=== PATIENT | female | born 1970 | race Caucasian/White ===

== ENCOUNTER 2018-06-22 12:45 | Observation (INO) | payer OTHER ==
--- NOTE | 2018-10-23 12:23 | PCM.PREANE ---
Preanesthetic Assessment - Anesthesia/Transfusion/Family Hx Anesthesia History: Prior Anesthesia Reaction Type of Anesthesia Reaction: Excessive Nausea/Vomiting Family History of Anesthesia Reaction: No Transfusion History: No Prior Transfusion(s) Intubation History: Unknown - Review of Systems General: No Symptoms Pulmonary: No Symptoms (History of albuterol: last used inhaler-does not own one.) Cardiovascular: No Symptoms Gastrointestinal: No Symptoms (GERD-pepcid OTC taken) Neurological: No Symptoms Other: Reports: Diabetes (AM blood [id number]=602 @0620), Sinus Problem (Seasonal allergies) - Physical Assessment NPO Status Date: 10/25/18 NPO Status Time: 19:00 Height: 1.65 m Weight: 99 kg ASA Class: 2 Mental Status: Alert & Oriented x3 Airway Class: Mallampati = 2 Dentition: Reports: Normal Dentition, [place](s), [place] Thyro-Mental Finger Breadths: 3 Mouth Opening Finger Breadths: 3 ROM/Head Extension: Full Lungs: Clear to Auscultation, Normal Respiratory Effort Cardiovascular: Regular Rate, Regular Rhythm, No Murmurs - Lab Values: Laboratory Last Values MRSA (PCR) Negative 10/20/18 09:49 All lab values reviewed and noted and within acceptable ranges to proceed with scheduled procedure. - Imaging/EKG Impressions: EKG: Sinus rhythm rate= 79 CXR: negative - Allergies Allergies/Adverse Reactions: Allergies Allergy/AdvReac Type Severity Reaction Status Date / Time banana Allergy Airway Verified 10/26/18 06:36 Tightness fish derived Allergy Airway Verified 10/26/18 06:36 Tightness rosuvastatin [From Crestor] Allergy Muscle Verified 10/26/18 06:36 Aches tree nut Allergy Airway Verified 10/26/18 06:36 Tightness - Anesthesia Plan Pre-Op Medication Ordered: Other (Pre-op meds: lyrica, tylenol, oxycodone given in preop at: 0635) - Acknowledgements Anesthesia Type Planned: Spinal (Left adductor canal block under US guidance for post operative pain control requested by Dr. 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 (See Below) Other OB/BYN History: x2 Musculoskeletal History: Reports: Osteoarthritis Neurological History: Reports: None Psychiatric History: Reports: None Endocrine/Metabolic History: Reports: Diabetes, Type II Hematologic History: Reports: None Immunologic History: Reports: None Oncologic (Cancer) History: Reports: None Dermatologic History: Reports: None - Past Surgical History Head Surgeries/Procedures: Reports: None HEENT Surgical History: Reports: None Cardiovascular Surgical History: Reports: None Respiratory Surgical History: Reports: None GI Surgical History: Reports: None Female Surgical History: Reports: None Male Surgical History: Reports: None Endocrine Surgical History: Reports: None Neurological Surgical History: Reports: None Musculoskeletal Surgical History: Reports: Other (See Below) Other Musculoskeletal Surgeries/Procedures:: bilateral foot/tendon surgeries Oncologic Surgical History: Reports: None Dermatological Surgical History: Reports: None - SUBSTANCE USE Smoking Status *Q: Never Smoker Second Hand Smoke Exposure: No Recreational Drug Use History: No - HOME MEDS Home Medications: Home Meds Aspirin [Ecotrin EC] 81 mg PO DAILY 10/22/18 [History] Cholecalciferol (Vitamin D3) [Vitamin D3] 5,000 unit PO DAILY 10/22/18 [History] Dulaglutide [Trulicity] 0.5 ml SQ MO 10/22/18 [History] Ezetimibe 10 mg PO DAILY 10/22/18 [History] Fexofenadine HCl [Corina Allergy] 60 mg PO DAILY 10/22/18 [History] Multivitamin [Daily Yris] 1 tab PO DAILY 10/22/18 [History] metFORMIN HCl [Metformin HCl] 1,000 mg PO DAILY 10/22/18 [History] - CURRENT (IN HOUSE) MEDS Current Meds: Current Medications Acetaminophen (Tylenol) 975 mg PO ONETIME JERICHO Stop: 10/26/18 16:00 Lactated Ringer's (Ringers, Lactated) 1,000 mls @ 125 mls/hr IV ASDIRECTED JERICHO Lidocaine/Sodium Bicarbonate (Buffered Lidocaine 1% In Ns 8.4%) 0.25 ml IDERM ONETIME PRN PRN Reason: Prior to IV Start Oxycodone HCl (Oxycontin) 10 mg PO ASDIRECTED JERICHO Stop: 10/26/18 16:00 Pregabalin (Lyrica) 50 mg PO ONETIME JERICHO Stop: 10/26/18 16:00 Scopolamine (Transderm-Scop) 1.5 mg TRDERM ONETIME ONE Stop: 10/26/18 00:02 Sodium Chloride (Saline Flush) 10 ml FLUSH ASDIRECTED PRN PRN Reason: Keep Vein Open
[2018-10-26] MEDS ORDERED: Scopolamine 1.5 MG Transdermal Patch TRDERM ONE ×2 (00:01→06:45)
[2018-10-26] MEDS ORDERED: oxyCODONE ER 10 MG TAB.ER PO SCH (06:00)
[2018-10-26] MEDS ORDERED: Pregabalin 25 MG Cap PO SCH (06:00)
[2018-10-26] MEDS ORDERED: Acetaminophen 325 MG Tab PO SCH (06:00)
[2018-10-26] MEDS ORDERED: Ropivacaine 0.5% 5 MG/ML 30 ML SDV ONE (06:07)
[2018-10-26] MEDS ORDERED: Sodium Chloride 0.9% 10 ML Syringe FLUSH PRN (06:23)
[2018-10-26] MEDS ORDERED: Lidocaine 1%/Sod Bicarbonate in NS 8.4% 1 ML Syringe IDERM PRN (06:23)
[2018-10-26] MEDS ORDERED: ceFAZolin 1 GM Vial ONE ×2 (06:23→06:38)
[2018-10-26] MEDS ORDERED: Propofol 200 MG/20 ML SDV ONE (06:23)
[2018-10-26] MEDS ORDERED: Lactated Ringers 1,000 ML IV SCH (06:23)
[2018-10-26] MEDS ORDERED: Lactated Ringers 1,000 ML ONE (06:23)
[2018-10-26] MEDS ORDERED: Ketorolac 30 MG/ML SDV ONE (06:23)
[2018-10-26] MEDS ORDERED: Ondansetron 4 MG/2 ML SDV ONE (06:23)
[2018-10-26] MEDS ORDERED: fentaNYL 100 MCG/2 ML SDV ONE (06:24)
[2018-10-26] MEDS ORDERED: Ketamine 500 mg/10 ML MDV ONE (06:24)
[2018-10-26] MEDS ORDERED: Midazolam 1 MG/ML 2 ML SDV ONE (06:24)
[2018-10-26] MEDS ORDERED: Iodine/Sodium Iodide 2% Tincture 30 ML Bottle ONE (06:38)
[2018-10-26] MEDS ORDERED: Magnesium Hydroxide 400 MG/5 ML Susp 30 ML Cup PO PRN (06:45)
[2018-10-26] MEDS ORDERED: Morphine 2 MG/ML Syringe IVPUSH PRN (06:45)
[2018-10-26] MEDS ORDERED: Ondansetron 4 MG/2 ML SDV IVPUSH PRN ×2 (06:45→07:31)
[2018-10-26] MEDS ORDERED: Ketorolac 15 MG/ML SDV IVPUSH PRN (06:45)
[2018-10-26] MEDS ORDERED: Sennosides 8.6 MG Tab PO PRN (06:45)
[2018-10-26] MEDS ORDERED: Cyclobenzaprine 10 MG Tab PO PRN (06:45)
[2018-10-26] MEDS ORDERED: Bisacodyl 5 MG Tab PO PRN (06:45)
[2018-10-26] MEDS ORDERED: Naloxone 0.4 MG/ML SDV IVPUSH PRN (06:45)
[2018-10-26] MEDS ORDERED: Bupivacaine 0.25% 10 ML SDV ONE (07:03)
[2018-10-26] MEDS ORDERED: diphenhydrAMINE 50 MG/ML SDV ONE (07:21)
[2018-10-26] MEDS ORDERED: ePHEDrine 50 MG/ML SDV IVPUSH PRN (07:31)
[2018-10-26] MEDS ORDERED: HYDROmorphone 0.5 MG/0.5 ML Syringe IVPUSH PRN (07:31)
[2018-10-26] MEDS ORDERED: fentaNYL 100 MCG/2 ML SDV IVPUSH PRN (07:31)
[2018-10-26] MEDS ORDERED: diphenhydrAMINE 50 MG/ML SDV IVPUSH PRN (07:31)
[2018-10-26] MEDS ORDERED: EPINEPHrine 1 MG/1 ML Amp ONE (07:41)
[2018-10-26] MEDS ORDERED: Phenylephrine 1 MG in Sodium Chloride 0.9% 10 ML IV SCH (07:45)
[2018-10-26] MEDS ORDERED: Albuterol 0.083% 2.5 MG/3 ML Neb Soln NEB ONE (07:45)
--- NOTE | 2018-10-26 07:53 | PCM.CONS ---
H&P History of Present Illness - General Date of Service: 10/26/18 Admit Problem/Dx: Admission Diagnosis/Problem Admission Diagnosis/Problem Osteoarthritis of knee Source of Information: Patient, Old Records, Provider, RN, RN Notes Reviewed History Limitations: Reports: No Limitations - History of Present Illness Initial Comments - Free Text/Narative: Thais Flaherty is a 48 yo female patient of Dr. Hall who is post-operative day 0 of left TKA with right knee cortisone injection. Hospital medicine was consulted for post-operative medical care of the following listed medical conditions. At this time she is resting comfortably in bed. Pain is controlled. She denies any chest pain, shortness of breath, palpitations, nausea, or vomiting. She carries a history of: Type II DM, HLD, OA, GERD, Asthma. She was never a smoker. She is a full code. Her primary care provider is Milena Blevins NP. - Related Data Allergies/Adverse Reactions: Allergies Allergy/AdvReac Type Severity Reaction Status Date / Time banana Allergy Airway Verified 10/26/18 06:36 Tightness fish derived Allergy Airway Verified 10/26/18 06:36 Tightness tree nut Allergy Airway Verified 10/26/18 06:36 Tightness rosuvastatin [From Crestor] AdvReac Muscle Verified 10/26/18 07:06 Aches Home Medications: Home Meds Aspirin [Ecotrin EC] 81 mg PO DAILY 10/22/18 [History] Cholecalciferol (Vitamin D3) [Vitamin D3] 5,000 unit PO DAILY 10/22/18 [History] Dulaglutide [Trulicity] 0.5 ml SQ MO 10/22/18 [History] Ezetimibe 10 mg PO DAILY 10/22/18 [History] Fexofenadine HCl [Corina Allergy] 60 mg PO DAILY 10/22/18 [History] Multivitamin [Daily Yris] 1 tab PO DAILY 10/22/18 [History] metFORMIN HCl [Metformin HCl] 1,000 mg PO DAILY 10/22/18 [History] Past Medical History HEENT History: Reports: None Cardiovascular History: Reports: High Cholesterol Respiratory History: Reports: Asthma Gastrointestinal History: Reports: None Genitourinary History: Reports: None 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: , Other (See Below) Other OB/BYN History: x2 Musculoskeletal History: Reports: Osteoarthritis Neurological History: Reports: None Psychiatric History: Reports: None Endocrine/Metabolic History: Reports: Diabetes, Type II Hematologic History: Reports: None Immunologic History: Reports: None Oncologic (Cancer) History: Reports: None Dermatologic History: Reports: None - Past Surgical History Head Surgeries/Procedures: Reports: None HEENT Surgical History: Reports: None Cardiovascular Surgical History: Reports: None Respiratory Surgical History: Reports: None GI Surgical History: Reports: None Female Surgical History: Reports: None Male Surgical History: Reports: None Endocrine Surgical History: Reports: None Neurological Surgical History: Reports: None Musculoskeletal Surgical History: Reports: Other (See Below) Other Musculoskeletal Surgeries/Procedures:: bilateral foot/tendon surgeries Oncologic Surgical History: Reports: None Dermatological Surgical History: Reports: None Social & Family History - Tobacco Use Smoking Status *Q: Never Smoker Second Hand Smoke Exposure: No - Caffeine Use Caffeine Use: Reports: Tea - Recreational Drug Use Recreational Drug Use: No H&P Review of Systems - Review of Systems: Review Of Systems: See Below General: Reports: No Symptoms. Denies: Fever, Chills HEENT: Reports: No Symptoms. Denies: Headaches, Sore Throat Pulmonary: Reports: No Symptoms. Denies: Shortness of Breath, Wheezing, Pleuritic Chest Pain, Cough, Sputum Cardiovascular: Reports: No Symptoms. Denies: Chest Pain, Palpitations Gastrointestinal: Reports: No Symptoms. Denies: Abdominal Pain, Constipation, Diarrhea, Nausea, Vomiting Genitourinary: Reports: No Symptoms. Denies: Pain Musculoskeletal: Reports: Leg Pain Skin: Reports: No Symptoms. Denies: Cyanosis Psychiatric: Reports: No Symptoms. Denies: Confusion Neurological: Reports: No Symptoms Hematologic/Lymphatic: Reports: No Symptoms Immunologic: Reports: No Symptoms Exam - Exam Exam: See Below - Vital Signs Vital Signs: Last Vital Signs Temp 98.5 F 10/26/18 06:10 Pulse 76 10/26/18 06:10 Resp 16 10/26/18 06:10 BP 140/83 10/26/18 06:10 Pulse Ox 97 10/26/18 06:10 Weight: 218 lb 4.122 oz - Exam Quality Assessment: DVT Prophylaxis General: Alert, Oriented, Cooperative. No: Mild Distress HEENT: Conjunctiva Clear, EACs Clear, EOMI, Hearing Intact, Mucosa Moist & Cataract , Nares Patent, Posterior Pharynx Clear, PERRLA Neck: Supple, Trachea Midline Lungs: Clear to Auscultation, Normal Respiratory Effort Cardiovascular: Regular Rate, Regular Rhythm GI/Abdominal Exam: Normal Bowel Sounds, Soft, Non-Tender, No Organomegaly, No Distention (Female) Exam: Deferred Rectal (Female) Exam: Deferred Back Exam: Normal Inspection, Full Range of Motion Extremities: No Pedal Edema, Normal Capillary Refill, Leg Pain, Limited Range of Motion, Other (Bandage in place on left leg. Bandage is dry and intact. Cooling pack in place. ) Peripheral Pulses: 2+: Radial (L), Radial (R), Dorsalis Pedis (L), Dorsalis Pedis (R) Skin: Warm, Dry, Intact Neurological: Cranial Nerves Intact (Grossly ) Neuro Extensive - Mental Status: Alert, Oriented x3, Normal Mood/Affect - Patient Data Lab Results Last 24 hrs: Laboratory Results - last 24 hr 10/26/ Range/Units 06:27 POC Glucose 114 H (70-105) mg/dL Consult PN Assessment/Plan POD#: 0 (1) S/P total knee arthroplasty SNOMED Code(s): 5303427884414, 609019562, 2825089756170 Code(s): Z96.659 - PRESENCE OF UNSPECIFIED ARTIFICIAL KNEE JOINT Priority: High Current Visit: Yes Qualifiers: Laterality: left Qualified Code(s): Z96.652 - Presence of left artificial knee joint (2) Osteoarthritis SNOMED Code(s): 839479557 Code(s): M19.90 - UNSPECIFIED OSTEOARTHRITIS, UNSPECIFIED SITE Priority: High Current Visit: Yes Qualifiers: Osteoarthritis location: knee Osteoarthritis type: primary Laterality: bilateral Qualified Code(s): M17.0 - Bilateral primary osteoarthritis of knee (3) Type II diabetes mellitus SNOMED Code(s): 22732894 Code(s): E11.9 - TYPE 2 DIABETES MELLITUS WITHOUT COMPLICATIONS Priority: Medium Current Visit: No Qualifiers: Diabetes mellitus detention insulin use: without joint terminal attack controller use Diabetes mellitus complication status: with other specified complication Qualified Code (s): E11.69 - Type 2 diabetes mellitus with other specified complication (4) HLD (hyperlipidemia) SNOMED Code(s): 23899376 Code(s): E78.5 - HYPERLIPIDEMIA, UNSPECIFIED Priority: Low Current Visit : No Qualifiers: Hyperlipidemia type: unspecified Qualified Code(s): E78.5 - Hyperlipidemia , unspecified (5) Asthma SNOMED Code(s): 455778867 Code(s): J45.909 - UNSPECIFIED ASTHMA, UNCOMPLICATED Priority: Medium Current Visit: No Qualifiers: Asthma severity: unspecified severity Asthma persistence: unspecified Asthma complication type: unspecified Qualified Code(s): J45.909 - Unspecified asthma, uncomplicated (6) GERD (gastroesophageal reflux disease) SNOMED Code(s): 679934575 Code(s): K21.9 - GASTRO-ESOPHAGEAL REFLUX DISEASE WITHOUT ESOPHAGITIS Priority: Low Current Visit: No Qualifiers: Esophagitis presence: esophagitis presence not specified Qualified Code(s) : K21.9 - Gastro-esophageal reflux disease without esophagitis Problem List Initiated/Reviewed/Updated: Yes Plan: I/P: Acute: S/P left total knee arthroplasty - post-operative day 0 -DVT prophylaxis and pain management per primary care team -PT/OT -IS/RT -Monitor oxygen saturation -Titrate oxygen as needed -Home medications reviewed -Vital signs stable -Monitor labs -Pre-operative Hgb was 11.5 -Pre-operative GFR was 86 -Pre-operative A1C was 6.0% Osteoarthritis of bilateral knees -Pain management per primary care team S/P right knee cortisone injection -Management per primary team History of post operative nausea and vomiting -Scopolamine patch in place -PRN Zofran -No nausea or vomiting thus far Chronic: Type II DM HLD Asthma GERD Plan: CM for discharge planning GI prophylaxis Home medications as indicated Other orders as listed above Routine AM labs She is a full code. Her PCP is Milena Blevins NP Thank you for allowing us to participate in the care of this patient!! Requesting Provider: Dr. Hall Date Consult Requested: 10/26/18 Patient History Reviewed: Yes Admission H&P Reviewed: Yes Time Spent (in minutes): 40
[2018-10-26] MEDS: Morphine 8 MG, EPINEPHrine 0.3 MG, Cefuroxime 750 MG, Ketorolac 30 MG, Sodium Chloride ... ONE ×10 (08:15→08:17)
[2018-10-26] MEDS: Vancomycin 1 GM SDV ONE ×2 (08:16→08:19)
[2018-10-26] MEDS: Bupivacaine 0.25% 10 ML SDV ONE ×2 (08:16→08:17)
[2018-10-26] MEDS: Triamcinolone Acetonide 40 MG/ML 1 ML MDV ONE ×2 (08:17→08:45)
[2018-10-26] MEDS ORDERED: Phenylephrine/Normal Saline 100 MCG/ML 10 ML Syringe ONE (08:26)
--- NOTE | 2018-10-26 09:00 | PCM.POSTAN ---
POST ANESTHESIA ASSESSMENT - MENTAL STATUS Mental Status: Alert - VITAL SIGNS Vital Signs: Last Vital Signs Temp 97.3f 10/26/18 08:51 Pulse 69 10/26/18 08:51 Resp 10 10/26/18 08:51 BP 100/62 10/26/18 08:51 Pulse Ox 92 10/26/18 08:51 - RESPIRATORY Respiratory Status: Respiratory Rate WNL, Airway Patent, O2 Saturation Stable - CARDIOVASCULAR CV Status: Pulse Rate WNL, Blood Pressure Stable - GASTROINTESTINAL GI Status: No Symptoms - POST OP HYDRATION Hydration Status: Adequate & Stable
--- NOTE | 2018-10-26 09:26 | PCM.SN ---
- Free Text/Narrative Note: Left selective femoral nerve block at the adductor canal for post-procedure pain control under US guidance requested by Dr. Hall. Time Out: 903 Start: 903 End: 911 Chart reviewed. Consent signed. Questions answered. Appropriate monitors applied. Time out performed. Left mid-shaft femur identified with ultrasound, scanning medially of femur, the femoral artery in the adductor canal visualized , and the femoral nerve located laterally to the artery. The skin was prepped lateral to the ultrasound probe with chlorahexadine times two. The 21ga 4 insulated block needle was inserted under direct ultrasound guidance into the adductor canal. 25mL of 0.5% ropivacaine with 1:200,000 epinephrine was injected circumferentially around the nerve with intermittent negative aspiration noted. Patient tolerated the procedure well. Sterile technique noted along with sterile gloves, mask, and sterile probe cover. See picture on progress note and vital signs on nurses notes. Block completed in PACU. Geetha Shrestha CRNA
--- NOTE | 2018-10-26 10:13 | CR ---
Left knee: AP and lateral views of the left knee were obtained. Comparison: No prior knee exam. Knee prosthesis is seen. Components are aligned. No fracture or other bony abnormality is seen. Soft tissue air noted from the surgical procedure. Impression: 1. Satisfactory appearance of recently placed left knee prosthesis. Diagnostic code #2
[2018-10-26] MEDS: ceFAZolin 2 GM in Premix Bag 1 BAG IV SCH ×3 (10:49→22:16)
[2018-10-26] MEDS: Famotidine 20 MG Tab PO SCH ×2 (11:48→18:48)
[2018-10-26] MEDS: Acetaminophen/oxyCODONE 325-5 MG Tab PO PRN ×2 (14:37→20:03)
[2018-10-26] MEDS: Insulin Lispro 100 Units/ML 3 ML Vial SUBCUT SCH ×2 (17:30→22:12)
[2018-10-26] MEDS ORDERED: Cholecalciferol (Vitamin D3) 5,000 UNIT Tab PO SCH (19:00)
[2018-10-26] MEDS: Docusate Sodium 100 MG Cap PO SCH (20:02)
[2018-10-27] MEDS: Acetaminophen/oxyCODONE 325-5 MG Tab PO PRN ×2 (02:42→09:33)
[2018-10-27] MEDS: Famotidine 20 MG Tab PO SCH (06:20)
--- NOTE | 2018-10-27 06:20 | PCM.CONSN ---
- General Info Date of Service: 10/27/18 Admission Dx/Problem (Free Text): Admission Diagnosis/Problem Admission Diagnosis/Problem Osteoarthritis of knee Functional Status: Reports: Pain Controlled, Tolerating Diet, Ambulating, Urinating, Incentive Spirometry. Denies: New Symptoms - Review of Systems General: Reports: No Symptoms. Denies: Fever, Chills HEENT: Reports: No Symptoms. Denies: Headaches, Sore Throat Pulmonary: Reports: No Symptoms. Denies: Shortness of Breath, Pleuritic Chest Pain, Cough, Sputum, Wheezing Cardiovascular: Reports: No Symptoms. Denies: Chest Pain, Palpitations, Dyspnea on Exertion Gastrointestinal: Reports: No Symptoms. Denies: Abdominal Pain, Constipation, Diarrhea, Nausea, Vomiting Genitourinary: Reports: No Symptoms. Denies: Pain Musculoskeletal: Reports: Leg Pain Skin: Reports: No Symptoms. Denies: Cyanosis Neurological: Reports: No Symptoms. Denies: Confusion Psychiatric: Reports: No Symptoms - Patient Data Vitals - Most Recent: Last Vital Signs Temp 98.2 F 10/27/18 03:00 Pulse 57 L 10/27/18 03:00 Resp 18 10/27/18 03:00 BP 107/65 10/27/18 03:00 Pulse Ox 93 L 10/27/18 03:00 Weight - Most Recent: 218 lb 4.122 oz I&O - Last 24 Hours: Intake & Output 10/26/18 10/26/18 10/27/18 14:59 22:59 06:59 Intake Total 300 320 Balance 300 320 Lab Results Last 24 Hours: Laboratory Results - last 24 hr 10/26/18 10/26/18 10/26/18 Range/Units 06:27 09:34 17:20 POC Glucose 114 H 128 H 152 H (70-105) mg/dL 10/26/18 Range/Units 21:55 POC Glucose 161 H (70-105) mg/dL Med Orders - Current: Current Medications Aspirin (Ecotrin) 325 mg PO BID [facility] Bisacodyl (Dulcolax) 5 mg PO DAILY PRN PRN Reason: Constipation Cholecalciferol (Vitamin D3) 5,000 unit PO DAILY@1900 [facility] Last Admin: 10/26/18 18:48 Dose: 5,000 unit Cyclobenzaprine HCl (Flexeril) 10 mg PO TID PRN PRN Reason: Spasms Last Admin: 10/26/18 20:02 Dose: 10 mg Docusate Sodium (Colace) 100 mg PO BID [facility] Last Admin: 10/26/18 20:02 Dose: 100 mg Ezetimibe (Zetia) 10 mg PO DAILY@1000 [facility] Famotidine (Pepcid) 20 mg PO Q12H [facility] Last Admin: 10/26/18 18:48 Dose: 20 mg Cefazolin Sodium/Dextrose 2 gm (/ Premix) 50 mls @ 100 mls/hr IV Q8H [facility] Stop: 10/27/18 07:14 Insulin Human Lispro (Humalog) 0 unit SUBCUT QIDACANDBED [facility]; Protocol Last Admin: 10/26/18 22:12 Dose: 1 unit Ketorolac Tromethamine (Toradol) 15 mg IVPUSH Q6H PRN PRN Reason: Pain Last Admin: 10/27/18 02:38 Dose: 15 mg Loratadine (Claritin) 10 mg PO DAILY [facility] Magnesium Hydroxide (Milk Of Magnesia) 30 ml PO BID PRN PRN Reason: Constipation Morphine Sulfate (Morphine) 2 mg IVPUSH Q2H PRN PRN Reason: Breakthrough Pain Multivitamins (Thera) 1 each PO DAILY [facility] Naloxone HCl (Narcan) 0.1 mg IVPUSH Q5M PRN PRN Reason: Oversedation Ondansetron HCl (Zofran) 4 mg IVPUSH Q6H PRN PRN Reason: Nausea/Vomiting Oxycodone/Acetaminophen (Percocet 325-5 Mg) 1 - 2 tab PO Q4H PRN PRN Reason: Pain Last Admin: 10/27/18 02:42 Dose: 2 tab Dulaglutide [ (Trulicity] 0.5 Ml) 0 each SUBCUT Mo@1300 [facility] Senna (Senna) 8.6 mg PO BID PRN PRN Reason: Constipation Sodium Chloride (Saline Flush) 10 ml FLUSH ASDIRECTED PRN PRN Reason: Keep Vein Open Discontinued Medications Acetaminophen (Tylenol) 975 mg PO ONETIME [facility] Stop: 10/26/18 16:00 Last Admin: 10/26/18 06:32 Dose: 975 mg Albuterol (Proventil Neb Soln) 2.5 mg NEB ONETIME ONE Stop: 10/26/18 07:46 Last Admin: 10/26/18 10:51 Dose: Not Given Bupivacaine HCl (Sensorcaine-Mpf 0.25%) Confirm Administered Dose 30 ml .ROUTE .STK-MED ONE Stop: 10/26/18 06:39 Last Admin: 10/26/18 08:17 Dose: 26 ml Bupivacaine HCl (Sensorcaine-Mpf 0.25%) Confirm Administered Dose 20 ml .ROUTE .STK-MED ONE Stop: 10/26/18 07:04 Cefazolin Sodium (Ancef) Confirm Administered Dose 2 gm .ROUTE .STK-MED ONE Stop: 10/26/18 06:24 Last Admin: 10/26/18 08:13 Dose: 2 gm Cefazolin Sodium (Ancef) Confirm Administered Dose 2 gm .ROUTE .STK-MED ONE Stop: 10/26/18 06:39 Morphine Sulfate 8 mg/Epinephrine HCl 0.3 mg/Cefuroxime Sodium 750 mg/Ketorolac Tromethamine 30 mg/Sodium Chloride 27.9 ml 0 mg .XX ONETIME ONE Stop: 10/26/18 06:46 Last Admin: 10/26/18 08:17 Dose: 788.3 mg Diphenhydramine HCl (Benadryl) Confirm Administered Dose 50 mg .ROUTE .STK-MED ONE Stop: 10/26/18 07:22 Diphenhydramine HCl (Benadryl) 25 mg IVPUSH Q6H PRN PRN Reason: pruritis Stop: 10/26/18 11:00 Ephedrine Sulfate (Ephedrine Sulfate) 5 mg IVPUSH ASDIRECTED PRN PRN Reason: Hypotension Stop: 10/26/18 11:00 Epinephrine HCl (Adrenalin) Confirm Administered Dose 1 mg .ROUTE .STK-MED ONE Stop: 10/26/18 07:42 Fentanyl (Sublimaze) Confirm Administered Dose 100 mcg .ROUTE .STK-MED ONE Stop: 10/26/18 06:25 Fentanyl (Sublimaze) 50 mcg IVPUSH Q5M PRN PRN Reason: Pain Stop: 10/26/18 11:00 Hydromorphone HCl (Dilaudid) 0.5 mg IVPUSH Q15M PRN PRN Reason: Pain (severe 7-10) Stop: 10/26/18 11:00 Lactated Ringer's (Ringers, Lactated) 1,000 mls @ 125 mls/hr IV ASDIRECTED [facility] Stop: 10/26/18 23:00 Last Admin: 10/26/18 06:37 Dose: 125 mls/hr Lidocaine HCl (Xylocaine-Mpf 1%) Confirm Administered Dose 10 mls @ as directed .ROUTE .STK-MED ONE Stop: 10/26/18 06:24 Lactated Ringer's (Ringers, Lactated) Confirm Administered Dose 1,000 mls @ as directed .ROUTE .STK-MED ONE Stop: 10/26/18 06:24 Cefazolin Sodium/Dextrose 2 gm (/ Premix) 50 mls @ 100 mls/hr IV Q8H [facility] Stop: 10/26/18 23:14 Last Admin: 10/26/18 22:16 Dose: 100 mls/hr Phenylephrine HCl 1 mg/ Sodium (Chloride) 10.1 mls @ 1 mls/sec IV TITRATE [facility]; Protocol Stop: 10/26/18 11:00 Iodine (Iodine 2% Mild Tincture) Confirm Administered Dose 30 ml .ROUTE .STK- MED ONE Stop: 10/26/18 06:39 Last Admin: 10/26/18 08:11 Dose: 18 ml Ketamine HCl (Ketalar) Confirm Administered Dose 500 mg .ROUTE .STK-MED ONE Stop: 10/26/18 06:25 Ketorolac Tromethamine (Toradol) Confirm Administered Dose 30 mg .ROUTE .STK- MED ONE Stop: 10/26/18 06:24 Lidocaine/Sodium Bicarbonate (Buffered Lidocaine 1% In Ns 8.4%) 0.25 ml IDERM ONETIME PRN PRN Reason: Prior to IV Start Last Admin: 10/26/18 06:37 Dose: 0.25 ml Midazolam HCl (Versed 1 Mg/Ml) Confirm Administered Dose 2 mg .ROUTE .STK-MED ONE Stop: 10/26/18 06:25 Ondansetron HCl (Zofran) Confirm Administered Dose 4 mg .ROUTE .STK-MED ONE Stop: 10/26/18 06:24 Ondansetron HCl (Zofran) 4 mg IVPUSH ONETIME PRN PRN Reason: Nausea/Vomiting Stop: 10/26/18 11:00 Oxycodone HCl (Oxycontin) 10 mg PO ASDIRECTED [facility] Stop: 10/26/18 16:00 Last Admin: 10/26/18 06:32 Dose: 10 mg Phenylephrine HCl (Phenylephrine In Ns 100 Mcg/Ml) Confirm Administered Dose 1 mg .ROUTE .STK-MED ONE Stop: 10/26/18 08:27 Pregabalin (Lyrica) 50 mg PO ONETIME [facility] Stop: 10/26/18 16:00 Last Admin: 10/26/18 06:31 Dose: 50 mg Propofol (Diprivan 20 Ml) Confirm Administered Dose 400 mg .ROUTE .STK-MED ONE Stop: 10/26/18 06:24 Ropivacaine (Naropin 0.5%) Confirm Administered Dose 30 ml .ROUTE .STK-MED ONE Stop: 10/26/18 06:08 Scopolamine (Transderm-Scop) 1.5 mg TRDERM ONETIME ONE Stop: 10/26/18 00:02 Last Admin: 10/26/18 11:49 Dose: Not Given Scopolamine (Transderm-Scop) 1.5 mg TRDERM ONETIME ONE Stop: 10/26/18 06:46 Last Admin: 10/26/18 06:35 Dose: 1.5 mg Tranexamic Acid (Cyklokapron) Confirm Administered Dose 1,000 mg .ROUTE .STK- MED ONE Stop: 10/26/18 06:39 Last Admin: 10/26/18 08:25 Dose: 1,000 mg Tranexamic Acid (Cyklokapron) Confirm Administered Dose 1,000 mg .ROUTE .STK- MED ONE Stop: 10/26/18 07:03 Triamcinolone Acetonide (Kenalog-40) Confirm Administered Dose 80 mg .ROUTE .STK -MED ONE Stop: 10/26/18 06:39 Last Admin: 10/26/18 08:45 Dose: 80 mg Vancomycin HCl (Vancomycin) Confirm Administered Dose 1 gm .ROUTE .STK-MED ONE Stop: 10/26/18 06:39 Last Admin: 10/26/18 08:19 Dose: 1 gm - Exam Quality Assessment: DVT Prophylaxis. No: Supplemental Oxygen, Urine Catheter General: Alert, Oriented, Cooperative, No Acute Distress HEENT: Pupils Equal, Pupils Reactive, EOMI, Mucous Membr. Moist/[place] Neck: Supple, Trachea Midline, No JVD Lungs: Clear to Auscultation, Normal Respiratory Effort Cardiovascular: Regular Rate, Regular Rhythm GI/Abdominal Exam: Normal Bowel Sounds, Soft, Non-Tender, No Distention, No Abnormal Bruit (Female) Exam: Deferred Back Exam: Normal Inspection, Full Range of Motion Extremities: No Pedal Edema, Normal Capillary Refill, Leg Pain, Limited Range of Motion, Other (Bandage on left leg. Cooling pack in place. ) Peripheral Pulses: 2+: Radial (L), Radial (R), Dorsalis Pedis (L), Dorsalis Pedis (R) Skin: Warm, Dry, Intact Wound/Incisions: Dressing Dry and Intact Neurological: No New Focal Deficit Psy/Mental Status: Alert, Normal Affect, Normal Mood Consult PN Assessment/Plan POD#: 1 (1) S/P total knee arthroplasty SNOMED Code(s): 2105006454250, 506684650, 2830176719653 Code(s): Z96.659 - PRESENCE OF UNSPECIFIED ARTIFICIAL KNEE JOINT Priority: High Current Visit: Yes Qualifiers: Laterality: left Qualified Code(s): Z96.652 - Presence of left artificial knee joint (2) Osteoarthritis SNOMED Code(s): 885232183 Code(s): M19.90 - UNSPECIFIED OSTEOARTHRITIS, UNSPECIFIED SITE Priority: High Current Visit: Yes Qualifiers: Osteoarthritis location: knee Osteoarthritis type: primary Laterality: bilateral Qualified Code(s): M17.0 - Bilateral primary osteoarthritis of knee (3) Type II diabetes mellitus SNOMED Code(s): 15475698 Code(s): E11.9 - TYPE 2 DIABETES MELLITUS WITHOUT COMPLICATIONS Priority: Medium Current Visit: No Qualifiers: 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: without diesel 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 use Diabetes mellitus complication status: with other specified complication Qualified Code (s): E11.69 - Type 2 diabetes mellitus with other specified complication (4) HLD (hyperlipidemia) SNOMED Code(s): 19722441 Code(s): E78.5 - HYPERLIPIDEMIA, UNSPECIFIED Priority: Low Current Visit : No Qualifiers: Hyperlipidemia type: unspecified Qualified Code(s): E78.5 - Hyperlipidemia , unspecified (5) Asthma SNOMED Code(s): 787817282 Code(s): J45.909 - UNSPECIFIED ASTHMA, UNCOMPLICATED Priority: Medium Current Visit: No Qualifiers: Asthma severity: unspecified severity Asthma persistence: unspecified Asthma complication type: unspecified Qualified Code(s): J45.909 - Unspecified asthma, uncomplicated (6) GERD (gastroesophageal reflux disease) SNOMED Code(s): 597438405 Code(s): K21.9 - GASTRO-ESOPHAGEAL REFLUX DISEASE WITHOUT ESOPHAGITIS Priority: Low Current Visit: No Qualifiers: Esophagitis presence: esophagitis presence not specified Qualified Code(s) : K21.9 - Gastro-esophageal reflux disease without esophagitis Problem List Initiated/Reviewed/Updated: Yes My Orders Last 24 Hours: My Active Orders 10/26/18 12:14 Accu Check [Blood Glucose Check, Bedside] [RC] QIDACANDBED Blood Glucose Check, Bedside [RC] QIDACANDBED 10/26/18 17:00 Insulin Lispro [HumaLOG] See Protocol SUBCUT QIDACANDBED Plan: I/P: Acute: S/P left total knee arthroplasty - post-operative day 1 -DVT prophylaxis and pain management per primary care team -PT/OT -IS/RT -Monitor oxygen saturation -Titrate oxygen as needed -Home medications reviewed -Vital signs stable -Monitor labs -Pre-operative Hgb was 11.5; Now 10.7 -Pre-operative GFR was 86; Now >60 -Pre-operative A1C was 6.0% Osteoarthritis of bilateral knees -Pain management per primary care team S/P right knee cortisone injection -Management per primary team History of post operative nausea and vomiting -Scopolamine patch in place -PRN Zofran -No nausea or vomiting during stay Chronic: Type II DM HLD Asthma GERD Plan: CM for discharge planning GI prophylaxis Home medications as indicated Other orders as listed above Routine AM labs She is a full code. Her PCP is Milena Blevins NP From a hospitalist standpoint Thais is doing well. She has been up ambulating and working with therapies. She has urinated and is not on oxygen. There are no nursing or patient concerns. Her labs and vital signs remain stable. She is cleared for discharge pending PT/OT and primary team agreement. Thank you for allowing us to participate in the care of this patient!!
[2018-10-27] MEDS: Insulin Lispro 100 Units/ML 3 ML Vial SUBCUT SCH (06:30)
[2018-10-27] MEDS ORDERED: ceFAZolin 2 GM in Premix Bag 1 BAG IV SCH (06:45)
--- NOTE | 2018-10-27 07:41 | PCM.SURGPN ---
- General Info Date of Service: 10/27/18 POD#: 1 Functional Status: Reports: Pain Controlled, Tolerating Diet, Ambulating, Urinating, Incentive Spirometry, Other (The pt reports quad soreness.) - Patient Data Vitals - Most Recent: Last Vital Signs Temp 98.2 F 10/27/18 03:00 Pulse 57 L 10/27/18 03:00 Resp 18 10/27/18 03:00 BP 107/65 10/27/18 03:00 Pulse Ox 93 L 10/27/18 03:00 Weight - Most Recent: 218 lb 4.122 oz I&O - Last 24 Hours: Intake & Output 10/26/18 10/27/18 10/27/18 22:59 06:59 14:59 Intake Total 320 Balance 320 Lab Results Last 24 Hrs: Laboratory Results - last 24 hr 10/26/18 10/26/18 10/26/18 Range/Units 09:34 17:20 21:55 WBC (3.98-10.04) K/mm3 RBC (3.98-5.22) M/mm3 Hgb (11.2-15.7) gm/L Hct (34.1-44.9) % MCV (79.4-94.8) fl MCH (25.6-32.2) pg MCHC (32.2-35.5) g/dl RDW Std Deviation (36.4-46.3) fL Plt Count (182-369) K/mm3 MPV (9.4-12.3) fl Sodium (136-145) mEq/L Potassium (3.5-5.1) mEq/L Chloride (98-107) mEq/L Carbon Dioxide (21-32) mEq/L Anion Gap (5-15) BUN (7-18) mg/dL Creatinine (0.55-1.02) mg/dL Est Cr Clr Drug Dosing mL/min Estimated GFR (MDRD) (>60) mL/min BUN/Creatinine Ratio (14-18) Glucose (74-106) mg/dL POC Glucose 128 H 152 H 161 H (70-105) mg/dL Calcium (8.5-10.1) mg/dL Total Bilirubin (0.2-1.0) mg/dL AST (15-37) U/L ALT (14-59) U/L Alkaline Phosphatase (46-116) U/L Total Protein (6.4-8.2) g/dl Albumin (3.4-5.0) g/dl Globulin gm/dL Albumin/Globulin Ratio (1-2) 10/27/18 10/27/18 10/27/18 Range/Units 06:19 06:20 06:20 WBC 8.61 (3.98-10.04) K/mm3 RBC 3.44 L (3.98-5.22) M/mm3 Hgb 10.7 L (11.2-15.7) gm/L Hct 33.0 L (34.1-44.9) % MCV 95.9 H (79.4-94.8) fl MCH 31.1 (25.6-32.2) pg MCHC 32.4 (32.2-35.5) g/dl RDW Std Deviation 42.7 (36.4-46.3) fL Plt Count 201 (182-369) K/mm3 MPV 11.3 (9.4-12.3) fl Sodium 139 (136-145) mEq/L Potassium 4.5 (3.5-5.1) mEq/L Chloride 104 (98-107) mEq/L Carbon Dioxide 28 (21-32) mEq/L Anion Gap 11.5 (5-15) BUN 12 (7-18) mg/dL Creatinine 0.8 (0.55-1.02) mg/dL Est Cr Clr Drug Dosing 77.38 mL/min Estimated GFR (MDRD) > 60 (>60) mL/min BUN/Creatinine Ratio 15.0 (14-18) Glucose 152 H (74-106) mg/dL POC Glucose 161 H (70-105) mg/dL Calcium 8.7 (8.5-10.1) mg/dL Total Bilirubin 0.5 (0.2-1.0) mg/dL AST 17 (15-37) U/L ALT 30 (14-59) U/L Alkaline Phosphatase 52 (46-116) U/L Total Protein 6.3 L (6.4-8.2) g/dl Albumin 2.8 L (3.4-5.0) g/dl Globulin 3.5 gm/dL Albumin/Globulin Ratio 0.8 L (1-2) Med Orders - Current: Current Medications Aspirin (Ecotrin) 325 mg PO BID [facility] Bisacodyl (Dulcolax) 5 mg PO DAILY PRN PRN Reason: Constipation Cholecalciferol (Vitamin D3) 5,000 unit PO DAILY@1900 [facility] Last Admin: 10/26/18 18:48 Dose: 5,000 unit Cyclobenzaprine HCl (Flexeril) 10 mg PO TID PRN PRN Reason: Spasms Last Admin: 10/26/18 20:02 Dose: 10 mg Docusate Sodium (Colace) 100 mg PO BID [facility] Last Admin: 10/26/18 20:02 Dose: 100 mg Ezetimibe (Zetia) 10 mg PO DAILY@1000 [facility] Famotidine (Pepcid) 20 mg PO Q12H [facility] Last Admin: 10/27/18 06:20 Dose: 20 mg Insulin Human Lispro (Humalog) 0 unit SUBCUT QIDACANDBED [facility]; Protocol Last Admin: 10/27/18 06:30 Dose: 1 unit Ketorolac Tromethamine (Toradol) 15 mg IVPUSH Q6H PRN PRN Reason: Pain Last Admin: 10/27/18 02:38 Dose: 15 mg Loratadine (Claritin) 10 mg PO DAILY [facility] Magnesium Hydroxide (Milk Of Magnesia) 30 ml PO BID PRN PRN Reason: Constipation Miscellaneous Information (Remove Patch) 1 ea TRDERM ONETIME ONE Stop: 10/29/18 06:36 Morphine Sulfate (Morphine) 2 mg IVPUSH Q2H PRN PRN Reason: Breakthrough Pain Multivitamins (Thera) 1 each PO DAILY [facility] Naloxone HCl (Narcan) 0.1 mg IVPUSH Q5M PRN PRN Reason: Oversedation Ondansetron HCl (Zofran) 4 mg IVPUSH Q6H PRN PRN Reason: Nausea/Vomiting Oxycodone/Acetaminophen (Percocet 325-5 Mg) 1 - 2 tab PO Q4H PRN PRN Reason: Pain Last Admin: 10/27/18 02:42 Dose: 2 tab Dulaglutide [ (Trulicity] 0.5 Ml) 0 each SUBCUT Mo@1300 [facility] Senna (Senna) 8.6 mg PO BID PRN PRN Reason: Constipation Sodium Chloride (Saline Flush) 10 ml FLUSH ASDIRECTED PRN PRN Reason: Keep Vein Open Discontinued Medications Acetaminophen (Tylenol) 975 mg PO ONETIME [facility] Stop: 10/26/18 16:00 Last Admin: 10/26/18 06:32 Dose: 975 mg Albuterol (Proventil Neb Soln) 2.5 mg NEB ONETIME ONE Stop: 10/26/18 07:46 Last Admin: 10/26/18 10:51 Dose: Not Given Bupivacaine HCl (Sensorcaine-Mpf 0.25%) Confirm Administered Dose 30 ml .ROUTE .STK-MED ONE Stop: 10/26/18 06:39 Last Admin: 10/26/18 08:17 Dose: 26 ml Bupivacaine HCl (Sensorcaine-Mpf 0.25%) Confirm Administered Dose 20 ml .ROUTE .STK-MED ONE Stop: 10/26/18 07:04 Cefazolin Sodium (Ancef) Confirm Administered Dose 2 gm .ROUTE .STK-MED ONE Stop: 10/26/18 06:24 Last Admin: 10/26/18 08:13 Dose: 2 gm Cefazolin Sodium (Ancef) Confirm Administered Dose 2 gm .ROUTE .STK-MED ONE Stop: 10/26/18 06:39 Morphine Sulfate 8 mg/Epinephrine HCl 0.3 mg/Cefuroxime Sodium 750 mg/Ketorolac Tromethamine 30 mg/Sodium Chloride 27.9 ml 0 mg .XX ONETIME ONE Stop: 10/26/18 06:46 Last Admin: 10/26/18 08:17 Dose: 788.3 mg Diphenhydramine HCl (Benadryl) Confirm Administered Dose 50 mg .ROUTE .STK-MED ONE Stop: 10/26/18 07:22 Diphenhydramine HCl (Benadryl) 25 mg IVPUSH Q6H PRN PRN Reason: pruritis Stop: 10/26/18 11:00 Ephedrine Sulfate (Ephedrine Sulfate) 5 mg IVPUSH ASDIRECTED PRN PRN Reason: Hypotension Stop: 10/26/18 11:00 Epinephrine HCl (Adrenalin) Confirm Administered Dose 1 mg .ROUTE .STK-MED ONE Stop: 10/26/18 07:42 Fentanyl (Sublimaze) Confirm Administered Dose 100 mcg .ROUTE .STK-MED ONE Stop: 10/26/18 06:25 Fentanyl (Sublimaze) 50 mcg IVPUSH Q5M PRN PRN Reason: Pain Stop: 10/26/18 11:00 Hydromorphone HCl (Dilaudid) 0.5 mg IVPUSH Q15M PRN PRN Reason: Pain (severe 7-10) Stop: 10/26/18 11:00 Lactated Ringer's (Ringers, Lactated) 1,000 mls @ 125 mls/hr IV ASDIRECTED [facility] Stop: 10/26/18 23:00 Last Admin: 10/26/18 06:37 Dose: 125 mls/hr Lidocaine HCl (Xylocaine-Mpf 1%) Confirm Administered Dose 10 mls @ as directed .ROUTE .STK-MED ONE Stop: 10/26/18 06:24 Lactated Ringer's (Ringers, Lactated) Confirm Administered Dose 1,000 mls @ as directed .ROUTE .STK-MED ONE Stop: 10/26/18 06:24 Cefazolin Sodium/Dextrose 2 gm (/ Premix) 50 mls @ 100 mls/hr IV Q8H [facility] Stop: 10/26/18 23:14 Last Admin: 10/26/18 22:16 Dose: 100 mls/hr Phenylephrine HCl 1 mg/ Sodium (Chloride) 10.1 mls @ 1 mls/sec IV TITRATE [facility]; Protocol Stop: 10/26/18 11:00 Cefazolin Sodium/Dextrose 2 gm (/ Premix) 50 mls @ 100 mls/hr IV Q8H [facility] Stop: 10/27/18 07:14 Last Admin: 10/27/18 06:20 Dose: 100 mls/hr Iodine (Iodine 2% Mild Tincture) Confirm Administered Dose 30 ml .ROUTE .STK- MED ONE Stop: 10/26/18 06:39 Last Admin: 10/26/18 08:11 Dose: 18 ml Ketamine HCl (Ketalar) Confirm Administered Dose 500 mg .ROUTE .STK-MED ONE Stop: 10/26/18 06:25 Ketorolac Tromethamine (Toradol) Confirm Administered Dose 30 mg .ROUTE .STK- MED ONE Stop: 10/26/18 06:24 Lidocaine/Sodium Bicarbonate (Buffered Lidocaine 1% In Ns 8.4%) 0.25 ml IDERM ONETIME PRN PRN Reason: Prior to IV Start Last Admin: 10/26/18 06:37 Dose: 0.25 ml Midazolam HCl (Versed 1 Mg/Ml) Confirm Administered Dose 2 mg .ROUTE .STK-MED ONE Stop: 10/26/18 06:25 Ondansetron HCl (Zofran) Confirm Administered Dose 4 mg .ROUTE .STK-MED ONE Stop: 10/26/18 06:24 Ondansetron HCl (Zofran) 4 mg IVPUSH ONETIME PRN PRN Reason: Nausea/Vomiting Stop: 10/26/18 11:00 Oxycodone HCl (Oxycontin) 10 mg PO ASDIRECTED [facility] Stop: 10/26/18 16:00 Last Admin: 10/26/18 06:32 Dose: 10 mg Phenylephrine HCl (Phenylephrine In Ns 100 Mcg/Ml) Confirm Administered Dose 1 mg .ROUTE .STK-MED ONE Stop: 10/26/18 08:27 Pregabalin (Lyrica) 50 mg PO ONETIME [facility] Stop: 10/26/18 16:00 Last Admin: 10/26/18 06:31 Dose: 50 mg Propofol (Diprivan 20 Ml) Confirm Administered Dose 400 mg .ROUTE .STK-MED ONE Stop: 10/26/18 06:24 Ropivacaine (Naropin 0.5%) Confirm Administered Dose 30 ml .ROUTE .STK-MED ONE Stop: 10/26/18 06:08 Scopolamine (Transderm-Scop) 1.5 mg TRDERM ONETIME ONE Stop: 10/26/18 00:02 Last Admin: 10/26/18 11:49 Dose: Not Given Scopolamine (Transderm-Scop) 1.5 mg TRDERM ONETIME ONE Stop: 10/26/18 06:46 Last Admin: 10/26/18 06:35 Dose: 1.5 mg Tranexamic Acid (Cyklokapron) Confirm Administered Dose 1,000 mg .ROUTE .STK- MED ONE Stop: 10/26/18 06:39 Last Admin: 10/26/18 08:25 Dose: 1,000 mg Tranexamic Acid (Cyklokapron) Confirm Administered Dose 1,000 mg .ROUTE .STK- MED ONE Stop: 10/26/18 07:03 Triamcinolone Acetonide (Kenalog-40) Confirm Administered Dose 80 mg .ROUTE .STK -MED ONE Stop: 10/26/18 06:39 Last Admin: 10/26/18 08:45 Dose: 80 mg Vancomycin HCl (Vancomycin) Confirm Administered Dose 1 gm .ROUTE .STK-MED ONE Stop: 10/26/18 06:39 Last Admin: 10/26/18 08:19 Dose: 1 gm - Exam Wound/Incisions: Dressing Dry and Intact General: Alert, Cooperative, No Acute Distress Lungs: Normal Respiratory Effort Extremities: Other (NVS intact for BLE. Neptali's negative.) - Problem List Review Problem List Initiated/Reviewed/Updated: Yes - My Orders Last 24 Hours: Active Orders 24 hr Category Date Time Status Patient Status [ADT] Routine ADT 10/26/18 06:46 Active Accu Check [Blood Glucose Check, Bedside] [RC] Care 10/26/18 12:14 Active QIDACANDBED Ambulate [RC] PER UNIT ROUTINE Care 10/26/18 06:45 Active Antiembolic Devices [RC] PER UNIT ROUTINE Care 10/26/18 06:46 Active Blood Glucose Check, Bedside [RC] QIDACANDBED Care 10/26/18 12:14 Inactive May Shower [RC] ASDIRECTED Care 10/26/18 06:45 Active Notify Provider Consults [RC] ASDIRECTED Care 10/26/18 06:48 Active Notify Provider [RC] ASDIRECTED Care 10/26/18 07:31 Active Oxygen Therapy [RC] PRN Care 10/26/18 06:46 Active Pulse Oximetry [RC] ASDIRECTED Care 10/26/18 07:30 Active RT Aerosol Therapy [RC] ASDIRECTED Care 10/26/18 07:32 Active RT Incentive Spirometry [RC] Q1HWA Care 10/26/18 06:44 Active Ready for Discharge [RC] PER UNIT ROUTINE Care 10/27/18 07:39 Ordered Up to Chair [RC] ASDIRECTED Care 10/26/18 06:45 Active Vital Signs [RC] 03,09,15,21 Care 10/26/18 06:46 Active Vital Signs [RC] Q15M Care 10/26/18 07:30 Inactive Consult to Physician [CONS] Routine Cons 10/26/18 06:45 Active OT Evaluation and Treatment [CONS] Routine Cons 10/26/18 06:44 Active PT Evaluation and Treatment [CONS] Routine Cons 10/26/18 06:44 Active Citizen Of [place] [employer] Diet [DIET] Diet 10/26/18 Lunch Active Acetaminophen/oxyCODONE [Percocet 325-5 MG] Med 10/26/18 06:45 Active 1 - 2 tab PO Q4H PRN Aspirin [Ecotrin] Med 10/27/18 09:00 Active 325 mg PO BID Bisacodyl [Dulcolax] Med 10/26/18 06:45 Active 5 mg PO DAILY PRN Cholecalciferol (Vitamin D3) [Vitamin D3] Med 10/26/18 19:00 Active 5,000 unit PO DAILY@1900 Cyclobenzaprine [Flexeril] Med 10/26/18 06:45 Active 10 mg PO TID PRN Docusate Sodium [Colace] Med 10/26/18 21:00 Active 100 mg PO BID Ezetimibe [Zetia] Med 10/27/18 10:00 Active 10 mg PO DAILY@1000 Famotidine [Pepcid] Med 10/26/18 06:45 Active 20 mg PO Q12H Insulin Lispro [HumaLOG] Med 10/26/18 17:00 Active See Protocol SUBCUT QIDACANDBED Ketorolac [Toradol] Med 10/26/18 06:45 Active 15 mg IVPUSH Q6H PRN Loratadine [Claritin] Med 10/27/18 09:00 Active 10 mg PO DAILY Magnesium Hydroxide [Milk of Magnesia] Med 10/26/18 06:45 Active 30 ml PO BID PRN Morphine Med 10/26/18 06:45 Active 2 mg IVPUSH Q2H PRN Multivitamins,Therapeutic [Thera] Med 10/27/18 09:00 Active 1 each PO DAILY Naloxone [Narcan] Med 10/26/18 06:45 Active 0.1 mg IVPUSH Q5M PRN Ondansetron [Zofran] Med 10/26/18 06:45 Active 4 mg IVPUSH Q6H PRN Patient's Own Medication [Ptom] Med 11/02/18 13:00 Active 0 each SUBCUT Mo@1300 Remove Patch Med 10/29/18 06:35 Once 1 ea TRDERM ONETIME ONE Sennosides [Senna] Med 10/26/18 06:45 Active 8.6 mg PO BID PRN Antiembolic Hose [OM.PC] Per Unit Routine Oth 10/26/18 06:47 Ordered Ice Therapy [OM.PC] Per Unit Routine Oth 10/26/18 06:47 Ordered Sequential Compression Device [OM.PC] Per Unit Routine Oth 10/26/18 06:44 Ordered Resuscitation Status Routine Resus Stat 10/26/18 06:45 Ordered Medication Orders Aspirin (Ecotrin) 325 mg PO BID [facility] Bisacodyl (Dulcolax) 5 mg PO DAILY PRN PRN Reason: Constipation Cholecalciferol (Vitamin D3) 5,000 unit PO DAILY@1900 [facility] Last Admin: 10/26/18 18:48 Dose: 5,000 unit Cyclobenzaprine HCl (Flexeril) 10 mg PO TID PRN PRN Reason: Spasms Last Admin: 10/26/18 20:02 Dose: 10 mg Docusate Sodium (Colace) 100 mg PO BID [facility] Last Admin: 10/26/18 20:02 Dose: 100 mg Ezetimibe (Zetia) 10 mg PO DAILY@1000 [facility] Famotidine (Pepcid) 20 mg PO Q12H [facility] Last Admin: 10/27/18 06:20 Dose: 20 mg Admin: 10/26/18 18:48 Dose: 20 mg Admin: 10/26/18 11:48 Dose: Not Given Insulin Human Lispro (Humalog) 0 unit SUBCUT QIDACANDBED [facility]; Protocol Last Admin: 10/27/18 06:30 Dose: 1 unit Admin: 10/26/18 22:12 Dose: 1 unit Admin: 10/26/18 17:30 Dose: 1 unit Ketorolac Tromethamine (Toradol) 15 mg IVPUSH Q6H PRN PRN Reason: Pain Last Admin: 10/27/18 02:38 Dose: 15 mg Loratadine (Claritin) 10 mg PO DAILY [facility] Magnesium Hydroxide (Milk Of Magnesia) 30 ml PO BID PRN PRN Reason: Constipation Miscellaneous Information (Remove Patch) 1 ea TRDERM ONETIME ONE Stop: 10/29/18 06:36 Morphine Sulfate (Morphine) 2 mg IVPUSH Q2H PRN PRN Reason: Breakthrough Pain Multivitamins (Thera) 1 each PO DAILY [facility] Naloxone HCl (Narcan) 0.1 mg IVPUSH Q5M PRN PRN Reason: Oversedation Ondansetron HCl (Zofran) 4 mg IVPUSH Q6H PRN PRN Reason: Nausea/Vomiting Oxycodone/Acetaminophen (Percocet 325-5 Mg) 1 - 2 tab PO Q4H PRN PRN Reason: Pain Last Admin: 10/27/18 02:42 Dose: 2 tab Admin: 10/26/18 20:03 Dose: 2 tab Admin: 10/26/18 14:37 Dose: 2 tab Dulaglutide [ (Trulicity] 0.5 Ml) 0 each SUBCUT Mo@1300 [facility] Senna (Senna) 8.6 mg PO BID PRN PRN Reason: Constipation Sodium Chloride (Saline Flush) 10 ml FLUSH ASDIRECTED PRN PRN Reason: Keep Vein Open - Assessment Assessment (Free Text/Narrative):: POD#1 - left TKA with right knee cortisone injection - Plan Plan (Free Text/Narrative):: 1. Discharge to home today if cleared by Hospitalist service and therapies. 2. 325mg ASA PO BID, frequent mobility, TEDs. 3. Outpatient P.T. 4. Hgb 10.7 today. The pt's case was discussed with Dr. Hall.
--- NOTE | 2018-10-27 07:45 | PCM48HPAN ---
Post Anesthesia Note - EVALUATION WITHIN 48HRS OF ANESTHETIC Vital Signs in Normal Range: Yes Patient Participated in Evaluation: Yes Respiratory Function Stable: Yes Airway Patent: Yes Cardiovascular Function Stable: Yes Hydration Status Stable: Yes Pain Control Satisfactory: Yes Nausea and Vomiting Control Satisfactory: Yes Mental Status Recovered: Yes Vital Signs: Last Vital Signs Temp 36.8 C 10/27/18 03:00 Pulse 57 L 10/27/18 03:00 Resp 18 10/27/18 03:00 BP 107/65 10/27/18 03:00 Pulse Ox 93 L 10/27/18 03:00
[2018-10-27] MEDS ORDERED: Multivitamins,Therapeutic Tab PO SCH (09:00)
[2018-10-27] MEDS ORDERED: Aspirin 325 MG Tab.EC PO SCH (09:00)
[2018-10-27] MEDS ORDERED: Loratadine 10 MG Tab PO SCH (09:00)
[2018-10-27] MEDS: Docusate Sodium 100 MG Cap PO SCH (09:32)
[2018-10-27] MEDS ORDERED: Ezetimibe 10 MG Tab PO SCH (10:00)
--- NOTE | 2018-10-27 15:16 | PCM.DCSUM1 ---
Discharge Summary - Hospital Course Brief History: Thais is a 48 yo female who underwent left TKA with right knee cortisone injection with Dr. Hall on 10-26-2018. The procedure was completed under spinal anesthesia with sedation. The pt tolerated the procedure well and was admitted to the [facility] under Medical-Surgical status. Medical management was provided by the Hospitalist service. The pt's Hospital course was uneventful. The pt's Hgb on POD#1 was 10.7. On POD#1, 325mg ASA BID was initiated for VTE prophylaxis. SCDs and TEDs were also ordered. A Mepilex dressing was placed at the incision site at the time of surgery and remained clean and dry. The pt participated in P.T. and O.T. and progressed well. The pt was allowed to WBAT. On POD#1, the pt was deemed appropriate to discharge to home. - Discharge Data Discharge Date: 10/27/18 Discharge Disposition: Home, Self-Care 01 Condition: Good - Patient Summary/Data Consults: Consultations 10/26/18 06:44 OT Evaluation and Treatment [CONS] Routine PT Evaluation and Treatment [CONS] Routine 10/26/18 06:45 Consult to Physician [CONS] Routine - Patient Instructions Diet: Usual Diet as Tolerated, Diabetic Diet Activity: Apply Ice, As Tolerated, Elevate Extremity, Full Weight Bearing Driving: Do Not Drive Showering/Bathing: May Shower Wound/Incision Care: Keep Operative Site/Wound Site Clean and Dry, Do NOT Change Dressing Notify Provider of: Fever, Increased Pain, Swelling and Redness, Drainage, Nausea and/or Vomiting Other/Special Instructions: Please get up and moving around EVERY HOUR while awake. This helps to prevent blood clots. Please use your walker and have help with mobility as needed. Take a short walk in your home every hour while awake. Please take 325mg Aspirin TWICE daily. The aspirin is being used for blood clot prevention and not for pain management so please do not miss a dose of the medication. You could use a medication like Zantac or Pepcid and a medication like Prilosec or Nexium to protect your stomach while you are using the aspirin. At home, please complete the exercises that you learned during the Hospital stay. Schedule for physical therapy. Use the pain medication as needed. The medication may cause drowsiness and constipation. Contact your primary care provider for instructions if you are constipated. You may use a stool softener like docusate sodium or Colace 100mg twice daily and/or a laxative like Miralax daily for constipation. Increase your water and fiber intake while you are using the pain medication. Discontinue use of the pain medication as soon as able. Please do not use other medications that may cause drowsiness (other pain medications, anxiety pills, cold medications, sleeping pills, etc) while using the prescription pain medication. Do not use alcohol while using the pain medication. You may use acetaminophen or Tylenol for pain management, however, please ensure you are not using over 4000 mg or 4 grams of acetaminophen per day from all sources. Your pain medication has 325mg of acetaminophen per tablet. At this time, please do not use ibuprofen (Motrin, Advil) or naproxen (Aleve) for pain management as you are using the aspirin. When the aspirin course is completed in 4 to 6 weeks, you could use ibuprofen or naproxen for pain management (if this is allowed by your primary care provider). Wear the ALYCIA hose during the day and you may remove these at night. Elevate the limb to decrease swelling. Place ice to the area often. Place a towel between your skin and the blue pad. Use the incentive spirometer often. Take deep breaths throughout the day. Please keep the dressing in place until follow-up. Notify the Clinic if the dressing becomes saturated. Increase your protein intake while you are healing. Due to your history of diabetes, please closely monitor your blood sugars and notify your primary care provider with abnormal values. Elevated blood sugars increases the risk of infection. Call the Clinic with questions or concerns - [phone]. - Discharge Plan *PRESCRIPTION DRUG MONITORING PROGRAM REVIEWED*: No *COPY OF PRESCRIPTION DRUG MONITORING REPORT IN PATIENT IMELDA: No Prescriptions/Med Rec: Acetaminophen/oxyCODONE [Percocet 325-5 MG] 1 - 2 tab PO Q4H PRN #60 tablet PRN Reason: Pain Aspirin [Ecotrin EC] 325 mg PO BID #84 tab.ec Cyclobenzaprine [Flexeril] 10 mg PO TID PRN #40 tablet PRN Reason: Spasms Home Medications: Home Meds Cholecalciferol (Vitamin D3) [Vitamin D3] 5,000 unit PO DAILY 10/22/18 [History] Dulaglutide [Trulicity] 0.5 ml SQ MO 10/22/18 [History] Ezetimibe 10 mg PO DAILY 10/22/18 [History] Fexofenadine HCl [Corina Allergy] 60 mg PO DAILY 10/22/18 [History] Multivitamin [Daily Yris] 1 tab PO DAILY 10/22/18 [History] metFORMIN HCl [Metformin HCl] 1,000 mg PO DAILY 10/22/18 [History] Acetaminophen/oxyCODONE [Percocet 325-5 MG] 1 - 2 tab PO Q4H PRN #60 tablet [Rx] Aspirin [Ecotrin EC] 325 mg PO BID #84 tab.ec 10/27/18 [Rx] Bisacodyl [Dulcolax] 5 mg PO DAILY PRN tablet 10/27/18 [Rx] Cyclobenzaprine [Flexeril] 10 mg PO TID PRN #40 tablet 10/27/18 [Rx] Docusate Sodium [Colace] 100 mg PO BID cap 10/27/18 [Rx] Famotidine [Pepcid] 20 mg PO Q12H tablet 10/27/18 [Rx] Magnesium Hydroxide [Milk of Magnesia] 30 ml PO BID PRN cup 10/27/18 [Rx] Sennosides [Senna] 8.6 mg PO BID PRN tablet 10/27/18 [Rx] Patient Handouts: Total Knee Replacement, Care After Referrals: Mahnaz Nuñez PA-C [Physician Currency Exchange Specialist] - - Discharge Summary/Plan Comment DC Time >30 min.: No - Patient Data Vitals - Most Recent: Last Vital Signs Temp 98.1 F 10/27/18 10:07 Pulse 63 10/27/18 10:07 Resp 16 10/27/18 10:07 BP 98/55 L 10/27/18 10:07 Pulse Ox 94 L 10/27/18 10:07 Weight - Most Recent: 218 lb 4.122 oz I&O - Last 24 hours: Intake & Output 10/27/18 10/27/18 10/27/18 06:59 14:59 22:59 Intake Total 320 Balance 320 Lab Results - Last 24 hrs: Laboratory Results - last 24 hr 10/26/18 10/26/18 10/27/18 Range/Units 17:20 21:55 06:19 WBC (3.98-10.04) K/mm3 RBC (3.98-5.22) M/mm3 Hgb (11.2-15.7) gm/L Hct (34.1-44.9) % MCV (79.4-94.8) fl MCH (25.6-32.2) pg MCHC (32.2-35.5) g/dl RDW Std Deviation (36.4-46.3) fL Plt Count (182-369) K/mm3 MPV (9.4-12.3) fl Sodium (136-145) mEq/L Potassium (3.5-5.1) mEq/L Chloride (98-107) mEq/L Carbon Dioxide (21-32) mEq/L Anion Gap (5-15) BUN (7-18) mg/dL Creatinine (0.55-1.02) mg/dL Est Cr Clr Drug Dosing mL/min Estimated GFR (MDRD) (>60) mL/min BUN/Creatinine Ratio (14-18) Glucose (74-106) mg/dL POC Glucose 152 H 161 H 161 H (70-105) mg/dL Calcium (8.5-10.1) mg/dL Total Bilirubin (0.2-1.0) mg/dL AST (15-37) U/L ALT (14-59) U/L Alkaline Phosphatase (46-116) U/L Total Protein (6.4-8.2) g/dl Albumin (3.4-5.0) g/dl Globulin gm/dL Albumin/Globulin Ratio (1-2) 10/27/18 10/27/18 Range/Units 06:20 06:20 WBC 8.61 (3.98-10.04) K/mm3 RBC 3.44 L (3.98-5.22) M/mm3 Hgb 10.7 L (11.2-15.7) gm/L Hct 33.0 L (34.1-44.9) % MCV 95.9 H (79.4-94.8) fl MCH 31.1 (25.6-32.2) pg MCHC 32.4 (32.2-35.5) g/dl RDW Std Deviation 42.7 (36.4-46.3) fL Plt Count 201 (182-369) K/mm3 MPV 11.3 (9.4-12.3) fl Sodium 139 (136-145) mEq/L Potassium 4.5 (3.5-5.1) mEq/L Chloride 104 (98-107) mEq/L Carbon Dioxide 28 (21-32) mEq/L Anion Gap 11.5 (5-15) BUN 12 (7-18) mg/dL Creatinine 0.8 (0.55-1.02) mg/dL Est Cr Clr Drug Dosing 77.38 mL/min Estimated GFR (MDRD) > 60 (>60) mL/min BUN/Creatinine Ratio 15.0 (14-18) Glucose 152 H (74-106) mg/dL POC Glucose (70-105) mg/dL Calcium 8.7 (8.5-10.1) mg/dL Total Bilirubin 0.5 (0.2-1.0) mg/dL AST 17 (15-37) U/L ALT 30 (14-59) U/L Alkaline Phosphatase 52 (46-116) U/L Total Protein 6.3 L (6.4-8.2) g/dl Albumin 2.8 L (3.4-5.0) g/dl Globulin 3.5 gm/dL Albumin/Globulin Ratio 0.8 L (1-2) Med Orders - Current: Current Medications Discontinued Medications Acetaminophen (Tylenol) 975 mg PO ONETIME [facility] Stop: 10/26/18 16:00 Last Admin: 10/26/18 06:32 Dose: 975 mg Albuterol (Proventil Neb Soln) 2.5 mg NEB ONETIME ONE Stop: 10/26/18 07:46 Last Admin: 10/26/18 10:51 Dose: Not Given Aspirin (Ecotrin) 325 mg PO BID [facility] Last Admin: 10/27/18 09:32 Dose: 325 mg Bisacodyl (Dulcolax) 5 mg PO DAILY PRN PRN Reason: Constipation Bupivacaine HCl (Sensorcaine-Mpf 0.25%) Confirm Administered Dose 30 ml .ROUTE .STK-MED ONE Stop: 10/26/18 06:39 Last Admin: 10/26/18 08:17 Dose: 26 ml Bupivacaine HCl (Sensorcaine-Mpf 0.25%) Confirm Administered Dose 20 ml .ROUTE .STK-MED ONE Stop: 10/26/18 07:04 Cefazolin Sodium (Ancef) Confirm Administered Dose 2 gm .ROUTE .STK-MED ONE Stop: 10/26/18 06:24 Last Admin: 10/26/18 08:13 Dose: 2 gm Cefazolin Sodium (Ancef) Confirm Administered Dose 2 gm .ROUTE .STK-MED ONE Stop: 10/26/18 06:39 Cholecalciferol (Vitamin D3) 5,000 unit PO DAILY@1900 [facility] Last Admin: 10/26/18 18:48 Dose: 5,000 unit Morphine Sulfate 8 mg/Epinephrine HCl 0.3 mg/Cefuroxime Sodium 750 mg/Ketorolac Tromethamine 30 mg/Sodium Chloride 27.9 ml 0 mg .XX ONETIME ONE Stop: 10/26/18 06:46 Last Admin: 10/26/18 08:17 Dose: 788.3 mg Cyclobenzaprine HCl (Flexeril) 10 mg PO TID PRN PRN Reason: Spasms Last Admin: 10/26/18 20:02 Dose: 10 mg Diphenhydramine HCl (Benadryl) Confirm Administered Dose 50 mg .ROUTE .STK-MED ONE Stop: 10/26/18 07:22 Diphenhydramine HCl (Benadryl) 25 mg IVPUSH Q6H PRN PRN Reason: pruritis Stop: 10/26/18 11:00 Docusate Sodium (Colace) 100 mg PO BID [facility] Last Admin: 10/27/18 09:32 Dose: 100 mg Ezetimibe (Zetia) 10 mg PO DAILY@1000 [facility] Last Admin: 10/27/18 09:33 Dose: 10 mg Ephedrine Sulfate (Ephedrine Sulfate) 5 mg IVPUSH ASDIRECTED PRN PRN Reason: Hypotension Stop: 10/26/18 11:00 Epinephrine HCl (Adrenalin) Confirm Administered Dose 1 mg .ROUTE .STK-MED ONE Stop: 10/26/18 07:42 Famotidine (Pepcid) 20 mg PO Q12H [facility] Last Admin: 10/27/18 06:20 Dose: 20 mg Fentanyl (Sublimaze) Confirm Administered Dose 100 mcg .ROUTE .STK-MED ONE Stop: 10/26/18 06:25 Fentanyl (Sublimaze) 50 mcg IVPUSH Q5M PRN PRN Reason: Pain Stop: 10/26/18 11:00 Hydromorphone HCl (Dilaudid) 0.5 mg IVPUSH Q15M PRN PRN Reason: Pain (severe 7-10) Stop: 10/26/18 11:00 Lactated Ringer's (Ringers, Lactated) 1,000 mls @ 125 mls/hr IV ASDIRECTED [facility] Stop: 10/26/18 23:00 Last Admin: 10/26/18 06:37 Dose: 125 mls/hr Lidocaine HCl (Xylocaine-Mpf 1%) Confirm Administered Dose 10 mls @ as directed .ROUTE .STK-MED ONE Stop: 10/26/18 06:24 Lactated Ringer's (Ringers, Lactated) Confirm Administered Dose 1,000 mls @ as directed .ROUTE .STK-MED ONE Stop: 10/26/18 06:24 Cefazolin Sodium/Dextrose 2 gm (/ Premix) 50 mls @ 100 mls/hr IV Q8H [facility] Stop: 10/26/18 23:14 Last Admin: 10/26/18 22:16 Dose: 100 mls/hr Phenylephrine HCl 1 mg/ Sodium (Chloride) 10.1 mls @ 1 mls/sec IV TITRATE [facility]; Protocol Stop: 10/26/18 11:00 Cefazolin Sodium/Dextrose 2 gm (/ Premix) 50 mls @ 100 mls/hr IV Q8H [facility] Stop: 10/27/18 07:14 Last Admin: 10/27/18 06:20 Dose: 100 mls/hr Insulin Human Lispro (Humalog) 0 unit SUBCUT QIDACANDBED [facility]; Protocol Last Admin: 10/27/18 06:30 Dose: 1 unit Iodine (Iodine 2% Mild Tincture) Confirm Administered Dose 30 ml .ROUTE .STK- MED ONE Stop: 10/26/18 06:39 Last Admin: 10/26/18 08:11 Dose: 18 ml Ketamine HCl (Ketalar) Confirm Administered Dose 500 mg .ROUTE .STK-MED ONE Stop: 10/26/18 06:25 Ketorolac Tromethamine (Toradol) Confirm Administered Dose 30 mg .ROUTE .STK- MED ONE Stop: 10/26/18 06:24 Ketorolac Tromethamine (Toradol) 15 mg IVPUSH Q6H PRN PRN Reason: Pain Last Admin: 10/27/18 02:38 Dose: 15 mg Lidocaine/Sodium Bicarbonate (Buffered Lidocaine 1% In Ns 8.4%) 0.25 ml IDERM ONETIME PRN PRN Reason: Prior to IV Start Last Admin: 10/26/18 06:37 Dose: 0.25 ml Loratadine (Claritin) 10 mg PO DAILY [facility] Last Admin: 10/27/18 09:32 Dose: 10 mg Magnesium Hydroxide (Milk Of Magnesia) 30 ml PO BID PRN PRN Reason: Constipation Midazolam HCl (Versed 1 Mg/Ml) Confirm Administered Dose 2 mg .ROUTE .STK-MED ONE Stop: 10/26/18 06:25 Miscellaneous Information (Remove Patch) 1 ea TRDERM ONETIME ONE Stop: 10/29/18 06:36 Morphine Sulfate (Morphine) 2 mg IVPUSH Q2H PRN PRN Reason: Breakthrough Pain Multivitamins (Thera) 1 each PO DAILY [facility] Last Admin: 10/27/18 09:32 Dose: 1 each Naloxone HCl (Narcan) 0.1 mg IVPUSH Q5M PRN PRN Reason: Oversedation Ondansetron HCl (Zofran) Confirm Administered Dose 4 mg .ROUTE .STK-MED ONE Stop: 10/26/18 06:24 Ondansetron HCl (Zofran) 4 mg IVPUSH Q6H PRN PRN Reason: Nausea/Vomiting Ondansetron HCl (Zofran) 4 mg IVPUSH ONETIME PRN PRN Reason: Nausea/Vomiting Stop: 10/26/18 11:00 Oxycodone HCl (Oxycontin) 10 mg PO ASDIRECTED [facility] Stop: 10/26/18 16:00 Last Admin: 10/26/18 06:32 Dose: 10 mg Oxycodone/Acetaminophen (Percocet 325-5 Mg) 1 - 2 tab PO Q4H PRN PRN Reason: Pain Last Admin: 10/27/18 09:33 Dose: 2 tab Dulaglutide [ (Trulicity] 0.5 Ml) 0 each SUBCUT Mo@1300 [facility] Phenylephrine HCl (Phenylephrine In Ns 100 Mcg/Ml) Confirm Administered Dose 1 mg .ROUTE .STK-MED ONE Stop: 10/26/18 08:27 Pregabalin (Lyrica) 50 mg PO ONETIME [facility] Stop: 10/26/18 16:00 Last Admin: 10/26/18 06:31 Dose: 50 mg Propofol (Diprivan 20 Ml) Confirm Administered Dose 400 mg .ROUTE .STK-MED ONE Stop: 10/26/18 06:24 Ropivacaine (Naropin 0.5%) Confirm Administered Dose 30 ml .ROUTE .STK-MED ONE Stop: 10/26/18 06:08 Scopolamine (Transderm-Scop) 1.5 mg TRDERM ONETIME ONE Stop: 10/26/18 00:02 Last Admin: 10/26/18 11:49 Dose: Not Given Scopolamine (Transderm-Scop) 1.5 mg TRDERM ONETIME ONE Stop: 10/26/18 06:46 Last Admin: 10/26/18 06:35 Dose: 1.5 mg Senna (Senna) 8.6 mg PO BID PRN PRN Reason: Constipation Sodium Chloride (Saline Flush) 10 ml FLUSH ASDIRECTED PRN PRN Reason: Keep Vein Open Tranexamic Acid (Cyklokapron) Confirm Administered Dose 1,000 mg .ROUTE .STK- MED ONE Stop: 10/26/18 06:39 Last Admin: 10/26/18 08:25 Dose: 1,000 mg Tranexamic Acid (Cyklokapron) Confirm Administered Dose 1,000 mg .ROUTE .STK- MED ONE Stop: 10/26/18 07:03 Triamcinolone Acetonide (Kenalog-40) Confirm Administered Dose 80 mg .ROUTE .STK -MED ONE Stop: 10/26/18 06:39 Last Admin: 10/26/18 08:45 Dose: 80 mg Vancomycin HCl (Vancomycin) Confirm Administered Dose 1 gm .ROUTE .STK-MED ONE Stop: 10/26/18 06:39 Last Admin: 10/26/18 08:19 Dose: 1 gm
[2018-10-29] MEDS ORDERED: REMOVE SCOPOLAMINE TRDERM ONE (06:35)
--- NOTE | 2018-10-30 07:11 | PCM.OPNOTE ---
- General Post-Op/Procedure Note Date of Surgery/Procedure: 10/26/18 Operative Procedure(s): left total knee arthroplasty with right knee corticosteroid injection Pre Op Diagnosis: bilateral knee osteoarthrosis Post-Op Diagnosis: Same Anesthesia Technique: Local, MAC, Spinal Primary Surgeon: Benny Hall Anesthesia Provider: Geetha Shrestha Director Of Research: Mahnaz Nuñez Director Of Research: Lynn Hanna EBL in mLs: 650 Complications: None Condition: Good Free Text/Narrative:: size 4/4 9mm 32x10
--- NOTE | 2018-10-30 14:56 | OR ---
DATE OF OPERATION: 10/26/2018 SURGEON: Benny Hall MD OPERATION PERFORMED: Left total knee arthroplasty with right knee corticosteroid injection. PREOPERATIVE DIAGNOSIS: Bilateral knee osteoarthrosis. POSTOPERATIVE DIAGNOSIS: Bilateral knee osteoarthrosis. ANESTHESIA: Local MAC with spinal. ANESTHESIA PROVIDER: Geetha Shrestha CRNA ASSISTANTS: Mahnaz Nuñez PA-C; and Lynn Hanna LPN. ESTIMATED BLOOD LOSS: 650 mL. COMPLICATIONS: None. CONDITION: Stable. IMPLANTS: 1. Jatin size 4 press-fit CR femur. 2. Jatin size 4 press-fit tibial baseplate. 3. Jatin size 4, 9 mm CS polyethylene insert. 4. Jatin size 32 x 10 mm press-fit asymmetric patella. DESCRIPTION OF PROCEDURE: The patient was identified in the preop holding area. Proper site was marked and identified by the surgeon. The patient was taken back to the operating theater. After adequate anesthesia, the patient's left lower extremity had a nonsterile tourniquet applied and it was sterilely prepped and draped in the usual sterile fashion. OR time-out was performed. The patient received 2 g IV Ancef. At this time, the left lower extremity was exsanguinated. Tourniquet was insufflated to 300 mmHg. Standard medial parapatellar incision was made. Medial parapatellar arthrotomy was created. Deep fibers of the MCL were raised and anterior fat pad was resected. At this time, attention was turned to the patella. Patella measured 23, it was resected to a 13 for 32 x 10 mm patella. Drill holes were then drilled and found to be in adequate position. The drill was then drilled in the distal femur and the intramedullary distal femoral cutting guide was then placed. 8 mm was resected off the distal femur and was found to be an adequate resection. Sizing guide was placed. It was found to be a Jatin size 4 press-fit CR femur that was shown on the implant record at the beginning of this dictation. The drill holes were drilled for the epicondylar axis using Whitesides line and epicondyles as reference. At this time, the 4-in - 1 cutting block was placed. An anterior posterior and anterior and posterior chamfer cuts were then completed. Attention was turned to the tibia. The posterior medial lateral retractors were placed. The extramedullary tibial guide was placed. It was placed in the old footprint of the ACL. It was aligned with the center of the ankle and 0 degrees of slope, 9 mm was then resected off the unaffected side. There was found to be an acceptable reduction. At this time, posterior osteophytes were removed along with medial and lateral meniscus. A trial implant was placed with a correct sized tibia that was mentioned at the beginning of the dictation. A Jatin size 4, 9 mm CS polyethylene insert was then placed. The patient's knee was brought through range of motion. The patella was tracking centrally and was stable to varus and valgus stress. Alignment was found to be roughly at 0 degrees. The tibia was stamped and drilled in proper rotation. The universal tibial base plate was impacted in place. Next, the Jatin size 4 press-fit CR femur impacted into place and the Jatin size 4, 9 mm CS polyethylene insert was placed. The patient's knee was brought into full extension. The patella was then press-fit in place at this time. Tourniquet was deflated. One liter dilute Betadine solution was irrigated through the knee along with 3 L of pulse lavage irrigation with Ancef. Periarticular injection was then completed. The patient's knee was brought through a range of motion. Knee was found to be stable to varus valgus stress, the patella was tracking centrally with full range of motion. At this time, a #2 barbed suture was used for closure of the medial parapatellar arthrotomy. Topical tranexamic acid was placed. 2-0 Vicryl was used subcutaneously, Prineo was used for the skin. The patient tolerated the procedure well and was sent to the PACU in stable condition. After this 2ml 40mg Kenalog and 4ml 0.25%marcaine were injected to the right knee under sterile technique. MMODAL /[id number] JOCELYN
[2018-11-02] MEDS ORDERED: Dulaglutide [Trulicity] 0.5 ML SUBCUT SCH (13:00)
== END 2018-10-27 10:35 | disposition home or self-care (01) ==
LOC: JD.OB 10-26 06:02 → EDSTATUS 10-26 08:00
PROVIDERS: ADMIT Orthopaedic Surgery; ATTEND Orthopaedic Surgery
DX: M17.0 Bilateral primary osteoarthritis of knee (principal); E11.9 Type 2 diabetes mellitus without complications; E78.00 Pure hypercholesterolemia, unspecified; E66.3 Overweight; J45.909 Unspecified asthma, uncomplicated; K21.9 Gastro-esophageal reflux disease without esophagitis; G89.18 Other acute postprocedural pain; Z91.018 Allergy to other foods; Z91.013 Allergy to seafood; Z88.8 Allergy status to other drugs, medicaments and biological substances; Z68.37 Body mass index [BMI] 37.0-37.9, adult; Z79.82 Long term (current) use of aspirin; Z79.84 Long term (current) use of oral hypoglycemic drugs; Z79.899 Other long term (current) drug therapy
CPT/HCPCS: 20610; 27447; 36415; 64447; 73560; 80053; 82962; 85027; 87641; 97110; 97116; 97161; 97165; 97535; A9270; C1776; G0378; J0171; J0690; J0697; J1200; J1815; J1885; J2001; J2250; J2270; J2370; J2405; J2704; J2795; J3010; J3301; J3370; J3490; J7120; 01402; 64450

== ENCOUNTER 2019-10-25 10:28 | Day surgery (SDC) | payer OTHER ==
[~2019-10-25 10:28] MED LIST: Acetaminophen 325 MG Tab PO SCH; Bisacodyl 5 MG Tab PO PRN; Famotidine 20 MG Tab PO SCH; Lactated Ringers 1,000 ML IV SCH; Lidocaine 1%/Sod Bicarbonate in NS 8.4% 1 ML Syringe IDERM PRN; Magnesium Hydroxide 400 MG/5 ML Susp 30 ML Cup PO PRN; Morphine 2 MG/ML SYRINGE IVPUSH PRN; Naloxone 0.4 MG/ML SDV IVPUSH PRN; Ondansetron 4 MG/2 ML SDV IVPUSH PRN; Pregabalin 25 MG Cap PO SCH; Sennosides 8.6 MG Tab PO PRN; Sodium Chloride 0.9% 10 ML Syringe FLUSH PRN; oxyCODONE ER 10 MG TAB.ER PO SCH
[2019-10-25] MEDS ORDERED: Scopolamine 1.5 MG Transdermal Patch TOP ONE (11:03)
--- NOTE | 2019-10-25 11:10 | PCM.PREANE ---
Preanesthetic Assessment - Procedure Proposed Procedure: Left Total Knee Replacement - Anesthesia/Transfusion/Family Hx Anesthesia History: Prior Anesthesia Without Reaction Type of Anesthesia Reaction: Excessive Nausea/Vomiting Family History of Anesthesia Reaction: No Transfusion History: No Prior Transfusion(s) Intubation History: Unknown - Review of Systems General: No Symptoms (Sesonal allergies, none today. ) Pulmonary: No Symptoms Cardiovascular: No Symptoms Gastrointestinal: Other (GERD, controlled. ) Neurological: No Symptoms Other: Reports: Diabetes (Type II, 73 mg/dl. Usually not less than 100 mg/dl. Dextrose solution ordered to begin infusion. ) - Physical Assessment NPO Status Date: 10/24/19 NPO Status Time: 18:00 Vital Signs: Last Vital Signs Temp 36.7 C 10/25/19 10:35 Pulse 70 10/25/19 10:35 Resp 16 10/25/19 10:35 BP 116/79 10/25/19 10:35 Pulse Ox 99 10/25/19 10:35 Height: 1.63 m Weight: 86.183 kg ASA Class: 2 Mental Status: Alert & Oriented x3 Airway Class: Mallampati = 2 Dentition: Reports: Normal Dentition Thyro-Mental Finger Breadths: 3 Mouth Opening Finger Breadths: 3 ROM/Head Extension: Full Lungs: Clear to Auscultation, Normal Respiratory Effort Cardiovascular: Regular Rate, Regular Rhythm - Lab Values: Laboratory Last Values POC Glucose 73 mg/dL (70-105) 10/25/19 10:49 Urine HCG, Qual Negative (NEGATIVE) 10/25/19 10:30 COVID-19 PCR Not detected (NOT DETECT) 10/21/19 10:45 MRSA (PCR) Negative 10/12/19 15:36 - Allergies Allergies/Adverse Reactions: Allergies Allergy/AdvReac Type Severity Reaction Status Date / Time banana Allergy Airway Verified 10/24/19 19:03 Tightness fish derived Allergy Airway Verified 10/24/19 19:03 Tightness tree nut Allergy Airway Verified 10/24/19 19:03 Tightness rosuvastatin [From Crestor] AdvReac Muscle Verified 10/24/19 19:03 Aches - Anesthesia Plan Pre-Op Medication Ordered: Other (Scopalamine Patch, Dextrose 5% at 25 ml/hour) - Acknowledgements Anesthesia Type Planned: Spinal Pt an Appropriate Candidate for the Planned Anesthesia: Yes Alternatives and Risks of Anesthesia Discussed w Pt/Guardian: Yes Pt/Guardian Understands and Agrees with Anesthesia Plan: Yes PreAnesthesia Questionnaire HEENT History: Reports: Impaired Vision Cardiovascular History: Reports: High Cholesterol Respiratory History: Reports: Asthma Gastrointestinal History: Reports: None Genitourinary History: Reports: None BIOLOGY INTERN History: Reports: , Other (See Below) Other OB/BYN History: x2 Musculoskeletal History: Reports: Osteoarthritis Neurological History: Reports: None Psychiatric History: Reports: None Endocrine/Metabolic History: Reports: None, Diabetes, Type II Hematologic History: Reports: None Immunologic History: Reports: None Oncologic (Cancer) History: Reports: None Dermatologic History: Reports: None - Infectious Disease History Infectious Disease History: Reports: None - Past Surgical History Head Surgeries/Procedures: Reports: None HEENT Surgical History: Reports: None Cardiovascular Surgical History: Reports: None Respiratory Surgical History: Reports: None GI Surgical History: Reports: None Female Surgical History: Reports: None Male Surgical History: Reports: None Endocrine Surgical History: Reports: None Neurological Surgical History: Reports: None Musculoskeletal Surgical History: Reports: Knee Replacement, Other (See Below) Other Musculoskeletal Surgeries/Procedures:: bilateral foot/tendon surgeries, LEFT TOTAL KNEE REPLACEMENT Oncologic Surgical History: Reports: None Dermatological Surgical History: Reports: None - SUBSTANCE USE Smoking Status *Q: Never Smoker Recreational Drug Use History: No - HOME MEDS Home Medications: Home Meds Cholecalciferol (Vitamin D3) [Vitamin D3] 5,000 unit PO DAILY 10/22/18 [History] Dulaglutide [Trulicity] 0.5 ml SQ TH 10/22/18 [History] Ezetimibe 10 mg PO DAILY 10/22/18 [History] Fexofenadine HCl [Corina Allergy] 60 mg PO DAILY 10/22/18 [History] Multivitamin [Daily Yris] 1 tab PO DAILY 10/22/18 [History] metFORMIN HCl [Metformin HCl] 1,000 mg PO BID 10/22/18 [History] - CURRENT (IN HOUSE) MEDS Current Meds: Current Medications Acetaminophen (Tylenol) 975 mg PO ONETIME [facility] Last Admin: 10/25/19 10:56 Dose: 975 mg Documented by: Aspirin (Ecotrin) 325 mg PO BID [facility] Bisacodyl (Dulcolax) 5 mg PO DAILY PRN PRN Reason: Constipation Morphine Sulfate 8 mg/Epinephrine HCl 0.3 mg/Cefuroxime Sodium 750 mg/Ketorolac Tromethamine 30 mg/Sodium Chloride 7.9 ml 0 mg .XX ASDIRECTED PRN PRN Reason: Pain Stop: 10/25/19 14:00 Cyclobenzaprine HCl (Flexeril) 10 mg PO TID PRN PRN Reason: Spasms Docusate Sodium (Colace) 100 mg PO BID [facility] Famotidine (Pepcid) 20 mg PO Q12H [facility] Lactated Ringer's (Ringers, Lactated) 1,000 mls @ 125 mls/hr IV ASDIRECTED [facility] Stop: 10/25/19 23:00 Last Admin: 10/25/19 10:40 Dose: 125 mls/hr Documented by: Cefazolin Sodium/Dextrose 2 gm (/ Premix) 50 mls @ 100 mls/hr IV Q8H [facility] Stop: 10/25/19 23:29 Dextrose/Water (Dextrose 5% In Water) 500 mls @ 25 mls/hr IV ASDIRECTED [facility] Ketorolac Tromethamine (Toradol) 15 mg IVPUSH Q6H PRN PRN Reason: Pain Lidocaine/Sodium Bicarbonate (Buffered Lidocaine 1% In Ns 8.4%) 0.25 ml IDERM ONETIME PRN PRN Reason: Prior to IV Start Stop: 10/25/19 18:00 Last Admin: 10/25/19 10:40 Dose: 0.25 ml Documented by: Magnesium Hydroxide (Milk Of Magnesia) 30 ml PO BID PRN PRN Reason: Constipation Morphine Sulfate (Morphine) 2 mg IVPUSH Q2H PRN PRN Reason: Breakthrough Pain Naloxone HCl (Narcan) 0.1 mg IVPUSH Q5M PRN PRN Reason: Oversedation Ondansetron HCl (Zofran) 4 mg IVPUSH Q6H PRN PRN Reason: Nausea/Vomiting Oxycodone HCl (Oxycontin) 10 mg PO ONETIME [facility] Last Admin: 10/25/19 10:55 Dose: 10 mg Documented by: Oxycodone/Acetaminophen (Percocet 325-5 Mg) 1 - 2 tab PO Q4H PRN PRN Reason: Pain Pregabalin (Lyrica) 50 mg PO ONETIME [facility] Last Admin: 10/25/19 10:56 Dose: 50 mg Documented by: Scopolamine (Transderm-Scop) 1.5 mg TOP ONETIME ONE Stop: 10/25/19 11:04 Senna (Senna) 8.6 mg PO BID PRN PRN Reason: Constipation Sodium Chloride (Saline Flush) 10 ml FLUSH ASDIRECTED PRN PRN Reason: Keep Vein Open Stop: 10/25/19 18:00 Discontinued Medications Famotidine (Pepcid) 20 mg PO Q12H [facility]
[2019-10-25] MEDS ORDERED: Dextrose 5% in Water 500 ML IV SCH (11:15)
[2019-10-25] MEDS ORDERED: Lidocaine 1% 4 ML ONE (11:39)
[2019-10-25] MEDS ORDERED: Ketorolac 30 MG/ML SDV ONE (11:39)
[2019-10-25] MEDS ORDERED: Midazolam 1 MG/ML 2 ML SDV ONE (11:39)
[2019-10-25] MEDS ORDERED: Dexamethasone 4 MG/ML 5 ML MDV ONE (11:39)
[2019-10-25] MEDS ORDERED: Propofol 200 MG/20 ML SDV ONE (11:39)
[2019-10-25] MEDS ORDERED: Ondansetron 4 MG/2 ML SDV ONE (11:39)
[2019-10-25] MEDS ORDERED: Ketamine 500 mg/10 ML MDV ONE (11:39)
[2019-10-25] MEDS ORDERED: ceFAZolin 1 GM Vial ONE (11:55)
[2019-10-25] MEDS ORDERED: Bupivacaine 0.75% 30 ML SDV ONE (11:59)
[2019-10-25] MEDS ORDERED: Lactated Ringers 1,000 ML ONE ×2 (13:14→14:12)
[2019-10-25] MEDS ORDERED: Ondansetron 4 MG/2 ML SDV IVPUSH PRN (13:25)
[2019-10-25] MEDS ORDERED: HYDROmorphone 0.5 MG/0.5 ML Syringe IVPUSH PRN (13:25)
[2019-10-25] MEDS ORDERED: fentaNYL 100 MCG/2 ML SDV IVPUSH PRN (13:25)
[2019-10-25] MEDS ORDERED: Ropivacaine 0.5% 5 MG/ML 30 ML SDV ONE (13:30)
[2019-10-25] MEDS ORDERED: ePHEDrine Sulfate/0.9% NaCl/Pf 25 MG/5 ML SYRINGE IV ONE (13:35)
[2019-10-25] MEDS: Iodine/Sodium Iodide 2% Tincture 30 ML Bottle ONE ×2 (13:38→13:40)
[2019-10-25] MEDS: ceFAZolin 1 GM Vial ONE ×2 (13:39→13:42)
[2019-10-25] MEDS: Bupivacaine 0.25% 10 ML SDV ONE ×2 (13:39→13:45)
[2019-10-25] MEDS: Morphine 8 MG, EPINEPHrine 0.3 MG, Cefuroxime 750 MG, Ketorolac 30 MG, Sodium Chloride ... PRN ×10 (13:40→13:45)
[2019-10-25] MEDS: Vancomycin 1 GM SDV ONE ×4 (13:40→13:53)
--- NOTE | 2019-10-25 14:40 | PCM.PRNOTE ---
- Free Text/Narrative Note: Postoperative regional pain control requested by surgeon. Pre-op Dx: Rt knee osteoarthritis. Post-op Rx: Total Rt knee arthroplasty. Procedure: Rt Adductor canal block with U/S guidance Requesting physician: Dr. Benny Mendes Risks and benefits discussed with the patient preoperatively including infection, bleeding, incomplete or failed block, possible nerve damage, local anesthetic toxicity. Permit signed. Patient after spinal anesthesia post surgery in PACU, stable , alert and awake. Time out performed. Right mid-thigh was prepped with Chloraprep x 1 and allowed to dry. Under aseptic technique, the right femoral artery and sartorius muscle were identified under ultrasound prior to needle insertion. 4" Stimuplex needle #22 [id number] was inserted under US guidance. Under direct visualization of needle tip the injection of 0.5% Ropivacaine with 1:200k epinephrine, total of 30 mls in divided doses, maintaining negative aspiration was completed without problems. No local anesthetic toxicity was noted. Patient is awake, stable and tolerated the procedure well. Time: 14:26 - 14:32 Please see attached U/S pictures.
--- NOTE | 2019-10-25 14:55 | PCM.POSTAN ---
POST ANESTHESIA ASSESSMENT - MENTAL STATUS Mental Status: Alert, Oriented - VITAL SIGNS Vital Signs: Last Vital Signs Temp 37.7 C 10/25/19 14:20 Pulse 70 10/25/19 10:35 Resp 12 10/25/19 14:45 BP 110/59 L 10/25/19 14:45 Pulse Ox 93 L 10/25/19 14:45 - RESPIRATORY Respiratory Status: Respiratory Rate WNL, Airway Patent, O2 Saturation Stable - CARDIOVASCULAR CV Status: Pulse Rate WNL, Blood Pressure Stable - GASTROINTESTINAL GI Status: No Symptoms - PAIN Pain Score: 0 - POST OP HYDRATION Hydration Status: Adequate & Stable
[2019-10-25] MEDS ORDERED: Cyclobenzaprine 10 MG Tab PO PRN (15:00)
--- NOTE | 2019-10-25 16:47 | CR ---
Right knee: AP and lateral views of the right knee were obtained. Comparison: No prior right knee study is available. Knee prosthesis is seen. Components are aligned. Soft tissue air is noted. Underlying bony structures are intact. Impression: 1. Satisfactory postop radiographic appearance of recently placed right knee prosthesis. Diagnostic code #2 This report was dictated in MDT
[2019-10-25] MEDS ORDERED: Ketorolac 15 MG/ML SDV IVPUSH PRN (18:00)
[2019-10-25] MEDS: ceFAZolin 2 GM in Premix Bag 1 BAG IV SCH (18:34)
[2019-10-25] MEDS: Famotidine 20 MG Tab PO SCH (21:04)
[2019-10-25] MEDS: Docusate Sodium 100 MG Cap PO SCH (21:05)
[2019-10-25] MEDS: Acetaminophen/oxyCODONE 325-5 MG Tab PO PRN (21:18)
[2019-10-26] MEDS: Acetaminophen/oxyCODONE 325-5 MG Tab PO PRN ×3 (01:38→09:31)
[2019-10-26] MEDS: ceFAZolin 2 GM in Premix Bag 1 BAG IV SCH ×2 (02:55→10:57)
--- NOTE | 2019-10-26 07:59 | PCM.SURGPN ---
- General Info Date of Service: 10/26/19 POD#: 1 Functional Status: Reports: Pain Controlled, Tolerating Diet, Ambulating, Urinating, Incentive Spirometry, Other (The pt gives a thumbs up when asked how she is doing.) - Patient Data Vitals - Most Recent: Last Vital Signs Temp 98.4 F 10/26/19 04:56 Pulse 56 L 10/26/19 04:56 Resp 15 10/26/19 04:56 BP 97/40 L 10/26/19 04:56 Pulse Ox 93 L 10/26/19 04:56 Weight - Most Recent: 190 lb I&O - Last 24 Hours: Intake & Output 10/25/19 10/26/19 10/26/19 22:59 06:59 14:59 Intake Total 340 Balance 340 Lab Results Last 24 Hrs: Laboratory Results - last 24 hr 10/25/19 10/25/19 10/25/19 Range/Units 10:30 10:49 14:50 WBC (3.98-10.04) K/mm3 RBC (3.98-5.22) M/mm3 Hgb (11.2-15.7) gm/dl Hct (34.1-44.9) % MCV (79.4-94.8) fl MCH (25.6-32.2) pg MCHC (32.2-35.5) g/dl RDW Std Deviation (36.4-46.3) fL Plt Count (182-369) K/mm3 MPV (9.4-12.3) fl Sodium (136-145) mEq/L Potassium (3.5-5.1) mEq/L Chloride (98-107) mEq/L Carbon Dioxide (21-32) mEq/L Anion Gap (5-15) BUN (7-18) mg/dL Creatinine (0.55-1.02) mg/dL Est Cr Clr Drug Dosing mL/min Estimated GFR (MDRD) (>60) mL/min BUN/Creatinine Ratio (14-18) Glucose (74-106) mg/dL POC Glucose 73 117 H (70-105) mg/dL Calcium (8.5-10.1) mg/dL Total Bilirubin (0.2-1.0) mg/dL AST (15-37) U/L ALT (14-59) U/L Alkaline Phosphatase (46-116) U/L Total Protein (6.4-8.2) g/dl Albumin (3.4-5.0) g/dl Globulin gm/dL Albumin/Globulin Ratio (1-2) Urine HCG, Qual Negative (NEGATIVE) 10/26/19 10/26/19 Range/Units 05:30 05:30 WBC 10.34 H (3.98-10.04) K/mm3 RBC 3.29 L (3.98-5.22) M/mm3 Hgb 10.2 L (11.2-15.7) gm/dl Hct 32.1 L (34.1-44.9) % MCV 97.6 H (79.4-94.8) fl MCH 31.0 (25.6-32.2) pg MCHC 31.8 L (32.2-35.5) g/dl RDW Std Deviation 41.8 (36.4-46.3) fL Plt Count 188 (182-369) K/mm3 MPV 11.1 (9.4-12.3) fl Sodium 140 (136-145) mEq/L Potassium 4.4 (3.5-5.1) mEq/L Chloride 104 (98-107) mEq/L Carbon Dioxide 30 (21-32) mEq/L Anion Gap 10.4 (5-15) BUN 13 (7-18) mg/dL Creatinine 0.8 (0.55-1.02) mg/dL Est Cr Clr Drug Dosing 73.46 mL/min Estimated GFR (MDRD) > 60 (>60) mL/min BUN/Creatinine Ratio 16.3 (14-18) Glucose 133 H (74-106) mg/dL POC Glucose (70-105) mg/dL Calcium 8.0 L (8.5-10.1) mg/dL Total Bilirubin 0.5 (0.2-1.0) mg/dL AST 19 (15-37) U/L ALT 25 (14-59) U/L Alkaline Phosphatase 38 L (46-116) U/L Total Protein 5.4 L (6.4-8.2) g/dl Albumin 2.6 L (3.4-5.0) g/dl Globulin 2.8 gm/dL Albumin/Globulin Ratio 0.9 L (1-2) Urine HCG, Qual (NEGATIVE) Med Orders - Current: Current Medications Aspirin (Ecotrin) 325 mg PO BID [facility] Bisacodyl (Dulcolax) 5 mg PO DAILY PRN PRN Reason: Constipation Cholecalciferol (Vitamin D3) 5,000 unit PO DAILY [facility] Cyclobenzaprine HCl (Flexeril) 10 mg PO TID PRN PRN Reason: Spasms Docusate Sodium (Colace) 100 mg PO BID [facility] Last Admin: 10/25/19 21:05 Dose: 100 mg Documented by: Ezetimibe (Zetia) 10 mg PO DAILY [facility] Famotidine (Pepcid) 20 mg PO Q12H [facility] Last Admin: 10/25/19 21:04 Dose: 20 mg Documented by: Cefazolin Sodium/Dextrose 2 gm (/ Premix) 50 mls @ 100 mls/hr IV Q8H [facility] Stop: 10/26/19 11:29 Last Admin: 10/26/19 02:55 Dose: 100 mls/hr Documented by: Loratadine (Claritin) 10 mg PO DAILY [facility] Magnesium Hydroxide (Milk Of Magnesia) 30 ml PO BID PRN PRN Reason: Constipation Miscellaneous Information (Remove Patch) 1 ea TRDERM ONETIME ONE Stop: 10/28/19 11:31 Morphine Sulfate (Morphine) 2 mg IVPUSH Q2H PRN PRN Reason: Breakthrough Pain Multivitamins (Thera) 1 each PO DAILY [facility] Naloxone HCl (Narcan) 0.1 mg IVPUSH Q5M PRN PRN Reason: Oversedation Ondansetron HCl (Zofran) 4 mg IVPUSH Q6H PRN PRN Reason: Nausea/Vomiting Oxycodone/Acetaminophen (Percocet 325-5 Mg) 1 - 2 tab PO Q4H PRN PRN Reason: Pain Last Admin: 10/26/19 05:36 Dose: 2 tab Documented by: Senna (Senna) 8.6 mg PO BID PRN PRN Reason: Constipation Discontinued Medications Acetaminophen (Tylenol) 975 mg PO ONETIME [facility] Last Admin: 10/25/19 10:56 Dose: 975 mg Documented by: Bupivacaine HCl (Sensorcaine-Mpf 0.25%) Confirm Administered Dose 30 ml .ROUTE .STK-MED ONE Stop: 10/25/19 11:09 Last Admin: 10/25/19 13:45 Dose: 30 ml Documented by: Bupivacaine HCl (Sensorcaine-Mpf 0.75%) Confirm Administered Dose 30 ml .ROUTE .STK-MED ONE Stop: 10/25/19 12:00 Cefazolin Sodium (Ancef) Confirm Administered Dose 2 gm .ROUTE .STK-MED ONE Stop: 10/25/19 11:09 Last Admin: 10/25/19 13:42 Dose: 2 gm Documented by: Cefazolin Sodium (Ancef) Confirm Administered Dose 2 gm .ROUTE .ST-MED ONE Stop: 10/25/19 11:56 Morphine Sulfate 8 mg/Epinephrine HCl 0.3 mg/Cefuroxime Sodium 750 mg/Ketorolac Tromethamine 30 mg/Sodium Chloride 7.9 ml 0 mg .XX ASDIRECTED PRN PRN Reason: Pain Stop: 10/25/19 14:00 Last Admin: 10/25/19 13:45 Dose: 788.3 mg Documented by: Dexamethasone (Dexamethasone) Confirm Administered Dose 20 mg .ROUTE .[facility] ONE Stop: 10/25/19 11:40 Ephedrine Sulfate (Ephedrine 25 Mg/5 Ml Syringe) Confirm Administered Dose 25 mg IV .[facility] ONE Stop: 10/25/19 13:36 Famotidine (Pepcid) 20 mg PO Q12H [facility] Last Admin: 10/25/19 16:21 Dose: Not Given Documented by: Fentanyl (Sublimaze) 50 mcg IVPUSH Q5M PRN PRN Reason: Pain Hydromorphone HCl (Dilaudid) 0.5 mg IVPUSH Q10M PRN PRN Reason: Pain (severe 7-10) Lactated Ringer's (Ringers, Lactated) 1,000 mls @ 125 mls/hr IV ASDIRECTED [facility] Stop: 10/25/19 23:00 Last Admin: 10/25/19 10:40 Dose: 125 mls/hr Documented by: Dextrose/Water (Dextrose 5% In Water) 500 mls @ 25 mls/hr IV ASDIRECTED [facility] Last Admin: 10/25/19 11:25 Dose: 25 mls/hr Documented by: Lidocaine HCl (Xylocaine-Mpf 1%) Confirm Administered Dose 4 mls @ as directed .ROUTE .STK-MED ONE Stop: 10/25/19 11:40 Lactated Ringer's (Ringers, Lactated) Confirm Administered Dose 1,000 mls @ as directed .ROUTE .STK-MED ONE Stop: 10/25/19 13:15 Lactated Ringer's (Ringers, Lactated) Confirm Administered Dose 1,000 mls @ as directed .ROUTE .STK-MED ONE Stop: 10/25/19 14:13 Iodine (Iodine 2% Mild Tincture) Confirm Administered Dose 30 ml .ROUTE .STK-MED ONE Stop: 10/25/19 11:09 Last Admin: 10/25/19 13:40 Dose: 18 ml Documented by: Ketamine HCl (Ketalar) Confirm Administered Dose 500 mg .ROUTE .STK-MED ONE Stop: 10/25/19 11:40 Ketorolac Tromethamine (Toradol) 15 mg IVPUSH Q6H PRN PRN Reason: Pain Ketorolac Tromethamine (Toradol) Confirm Administered Dose 30 mg .ROUTE .STK-MED ONE Stop: 10/25/19 11:40 Lidocaine/Sodium Bicarbonate (Buffered Lidocaine 1% In Ns 8.4%) 0.25 ml IDERM ONETIME PRN PRN Reason: Prior to IV Start Stop: 10/25/19 18:00 Last Admin: 10/25/19 10:40 Dose: 0.25 ml Documented by: Midazolam HCl (Versed 1 Mg/Ml) Confirm Administered Dose 2 mg .ROUTE .STK-MED ONE Stop: 10/25/19 11:40 Ondansetron HCl (Zofran) Confirm Administered Dose 4 mg .ROUTE .STK-MED ONE Stop: 10/25/19 11:40 Ondansetron HCl (Zofran) 4 mg IVPUSH ONETIME PRN PRN Reason: Nausea/Vomiting Oxycodone HCl (Oxycontin) 10 mg PO ONETIME [facility] Last Admin: 10/25/19 10:55 Dose: 10 mg Documented by: Pregabalin (Lyrica) 50 mg PO ONETIME [facility] Last Admin: 10/25/19 10:56 Dose: 50 mg Documented by: Propofol (Diprivan 20 Ml) Confirm Administered Dose 600 mg .ROUTE .STK-MED ONE Stop: 10/25/19 11:40 Ropivacaine (Naropin 0.5%) 30 ml .ROUTE .STK-MED ONE Stop: 10/25/19 13:31 Scopolamine (Transderm-Scop) 1.5 mg TOP ONETIME ONE Stop: 10/25/19 11:04 Last Admin: 10/25/19 11:20 Dose: 1.5 mg Documented by: Sodium Chloride (Saline Flush) 10 ml FLUSH ASDIRECTED PRN PRN Reason: Keep Vein Open Stop: 10/25/19 18:00 Tranexamic Acid (Cyklokapron) Confirm Administered Dose 1,000 mg .ROUTE .STK-MED ONE Stop: 10/25/19 11:09 Last Admin: 10/25/19 13:48 Dose: 1,000 mg Documented by: Vancomycin HCl (Vancomycin) Confirm Administered Dose 1 gm .ROUTE .STK-MED ONE Stop: 10/25/19 11:09 Last Admin: 10/25/19 13:53 Dose: 1 gm Documented by: - Exam Wound/Incisions: Dressing Dry and Intact General: Alert, Cooperative, No Acute Distress Lungs: Normal Respiratory Effort Extremities: Other (NVS intact for BLE. Neptali's negative.) Sepsis Event Note - Evaluation Sepsis Screening Result: No Definite Risk - Focused Exam Vital Signs: Vital Signs Temp Pulse Resp BP Pulse Ox 10/26/19 04:56 98.4 F 56 L 15 97/40 L 93 L 10/26/19 00:22 98.4 F 55 L 14 107/56 L 93 L 10/25/19 20:35 97/66 - Problem List Review Problem List Initiated/Reviewed/Updated: Yes - My Orders Last 24 Hours: Active Orders 24 hr Category Date Time Status Communication Order [RC] ASDIRECTED Care 10/25/19 13:25 Active Pulse Oximetry [RC] ASDIRECTED Care 10/25/19 13:25 Active Ready for Discharge [RC] PER UNIT ROUTINE Care 10/26/19 07:58 Ordered Citizen [place] [employer] Diet [DIET] Diet 10/25/19 Lunch Active Aspirin [Ecotrin] Med 10/26/19 09:00 Active 325 mg PO BID Cholecalciferol (Vitamin D3) [Vitamin D3] Med 10/26/19 09:00 Active 5,000 unit PO DAILY Cyclobenzaprine [Flexeril] Med 10/25/19 15:00 Active 10 mg PO TID PRN Docusate Sodium [Colace] Med 10/25/19 21:00 Active 100 mg PO BID Ezetimibe [Zetia] Med 10/26/19 09:00 Active 10 mg PO DAILY Famotidine [Pepcid] Med 10/25/19 21:00 Active 20 mg PO Q12H Loratadine [Claritin] Med 10/26/19 09:00 Active 10 mg PO DAILY Multivitamins,Therapeutic [Thera] Med 10/26/19 09:00 Active 1 each PO DAILY Remove Patch Med 10/28/19 11:30 Once 1 ea TRDER ONETIME ONE ceFAZolin [Ancef] 2 gm Med 10/25/19 19:00 Active Premix Bag 1 bag IV Q8H Medication Orders Aspirin (Ecotrin) 325 mg PO BID [facility] Bisacodyl (Dulcolax) 5 mg PO DAILY PRN PRN Reason: Constipation Cholecalciferol (Vitamin D3) 5,000 unit PO DAILY [facility] Cyclobenzaprine HCl (Flexeril) 10 mg PO TID PRN PRN Reason: Spasms Docusate Sodium (Colace) 100 mg PO BID [facility] Last Admin: 10/25/19 21:05 Dose: 100 mg Documented by: JERED Ezetimibe (Zetia) 10 mg PO DAILY [facility] Famotidine (Pepcid) 20 mg PO Q12H [facility] Last Admin: 10/25/19 21:04 Dose: 20 mg Documented by: JERED Cefazolin Sodium/Dextrose 2 gm (/ Premix) 50 mls @ 100 mls/hr IV Q8H [facility] Stop: 10/26/19 11:29 Last Admin: 10/26/19 02:55 Dose: 100 mls/hr Documented by: Infusion: 10/25/19 19:04 Dose: 100 mls/hr Documented by: Admin: 10/25/19 18:34 Dose: 100 mls/hr Documented by: [id number] Loratadine (Claritin) 10 mg PO DAILY [facility] Magnesium Hydroxide (Milk Of Magnesia) 30 ml PO BID PRN PRN Reason: Constipation Miscellaneous Information (Remove Patch) 1 ea TRDERM ONETIME ONE Stop: 10/28/19 11:31 Morphine Sulfate (Morphine) 2 mg IVPUSH Q2H PRN PRN Reason: Breakthrough Pain Multivitamins (Thera) 1 each PO DAILY [facility] Naloxone HCl (Narcan) 0.1 mg IVPUSH Q5M PRN PRN Reason: Oversedation Ondansetron HCl (Zofran) 4 mg IVPUSH Q6H PRN PRN Reason: Nausea/Vomiting Oxycodone/Acetaminophen (Percocet 325-5 Mg) 1 - 2 tab PO Q4H PRN PRN Reason: Pain Last Admin: 10/26/19 05:36 Dose: 2 tab Documented by: Admin: 10/26/19 01:38 Dose: 1 tab Documented by: Admin: 10/25/19 21:18 Dose: 1 tab Documented by: JERED Moran (Senna) 8.6 mg PO BID PRN PRN Reason: Constipation - Assessment Assessment (Free Text/Narrative):: POD#1 - right TKA - Plan Plan (Free Text/Narrative):: 1. Hgb 10.2. 2. 325mg ASA PO BID, frequent mobility, TEDs. 3. Discharge to home today. 4. Outpatient therapy. The pt's case was discussed with Dr. Hall.
--- NOTE | 2019-10-26 08:23 | PCM48HPAN ---
Post Anesthesia Note - EVALUATION WITHIN 48HRS OF ANESTHETIC Vital Signs in Normal Range: Yes Patient Participated in Evaluation: Yes Respiratory Function Stable: Yes Airway Patent: Yes Cardiovascular Function Stable: Yes Hydration Status Stable: Yes Pain Control Satisfactory: Yes Nausea and Vomiting Control Satisfactory: Yes Mental Status Recovered: Yes Vital Signs: Last Vital Signs Temp 36.9 C 10/26/19 04:56 Pulse 56 L 10/26/19 04:56 Resp 15 10/26/19 04:56 BP 97/40 L 10/26/19 04:56 Pulse Ox 93 L 10/26/19 04:56 - COMMENTS/OBSERVATIONS Free Text/Narrative:: no anesthesia complications noted
[2019-10-26] MEDS: Famotidine 20 MG Tab PO SCH (08:42)
[2019-10-26] MEDS: Docusate Sodium 100 MG Cap PO SCH (08:43)
[2019-10-26] MEDS ORDERED: Ezetimibe 10 MG Tab PO SCH (09:00)
[2019-10-26] MEDS ORDERED: Cholecalciferol (Vitamin D3) 5,000 UNIT Tab PO SCH (09:00)
[2019-10-26] MEDS ORDERED: Multivitamins,Therapeutic Tab PO SCH (09:00)
[2019-10-26] MEDS ORDERED: Aspirin 325 MG Tab.EC PO SCH (09:00)
[2019-10-26] MEDS ORDERED: Loratadine 10 MG Tab PO SCH (09:00)
--- NOTE | 2019-10-27 09:09 | PCM.OPNOTE ---
- General Post-Op/Procedure Note Date of Surgery/Procedure: 10/25/19 Operative Procedure(s): right total knee arthroplasty Pre Op Diagnosis: right knee osteoarthrosis Post-Op Diagnosis: Same Anesthesia Technique: Local, MAC, Spinal Primary Surgeon: Benny Hall Anesthesia Provider: Neelima Guzman Production Cloth Cutter: Mahnaz Nuñez Production Cloth Cutter: Lynn Hanna EBParam in mLs: 400 Complications: None Condition: Good Free Text/Narrative:: 4/4 9mm 32x10
--- NOTE | 2019-10-27 09:40 | OR ---
DATE OF OPERATION: 10/25/2019 SURGEON: Benny Hall MD OPERATION PERFORMED: Right total knee arthroplasty. PREOPERATIVE DIAGNOSIS: Right knee osteoarthrosis. POSTOPERATIVE DIAGNOSIS: Right knee osteoarthrosis. ANESTHESIA: Local MAC with spinal. ANESTHESIA PROVIDER: Karoline Ashraf. ASSISTANTS: Manhaz Nuñez PA-C, and Lynn Hanna LPN. ESTIMATED BLOOD LOSS: 400 mL. COMPLICATIONS: None. CONDITION: Stable. IMPLANTS: 1. Woodford size 4 press-fit CR femur. 2. Jatin size 4 press-fit universal tibial base plate. 3. Woodford size 4, 9 mm CS polyethylene insert. 4. Jatin size 32 x 10 mm press fit asymmetric patella. DESCRIPTION OF PROCEDURE: The patient was identified in the preop holding area. Proper site was marked and identified by the surgeon. The patient was taken back to the operating theater. After adequate anesthesia, the patient's right lower extremity had a nonsterile tourniquet applied and it was sterilely prepped and draped in the usual sterile fashion. OR time-out was performed. The patient received 2 g IV Ancef. At this time, the right lower extremity was exsanguinated. Tourniquet was insufflated to 300 mmHg. Standard medial parapatellar incision was made. Medial parapatellar arthrotomy was created. Deep fibers of the MCL were raised and anterior fat pad was resected. At this time, attention was turned to the patella. Patella measured a 24, it was resected to a 14 for 32 x 10 mm patella. Drill holes were then drilled and found to be in adequate position. The drill was then drilled in the distal femur and the intramedullary distal femoral cutting guide was then placed. 8 mm was resected off the distal femur and was found to be an adequate resection. Sizing guide was placed. It was found to be a size 4 press-fit CR femur that was shown on the implant record at the beginning of this dictation. The drill holes were drilled for the epicondylar axis using Whitesides line and epicondyles as reference. At this time, the 4-in- 1 cutting block was placed. An anterior posterior and anterior and posterior chamfer cuts were then completed. Attention was turned to the tibia. The posterior medial lateral retractors were placed. The extramedullary tibial guide was placed. It was placed in the old footprint of the ACL. It was aligned with the center of the ankle and 0 degrees of slope, 9 mm was then resected off the unaffected side. There was found to be an acceptable reduction. At this time, posterior osteophytes were removed along with medial and lateral meniscus. A trial implant was placed with a correct sized tibia that was mentioned at the beginning of the dictation. A Woodford size 4, 9 mm CS polyethylene insert was then placed. The patient's knee was brought through range of motion. The patella was tracking centrally and was stable to varus and valgus stress. Alignment was found to be roughly at 0 degrees. The tibia was stamped and drilled in proper rotation. The universal tibial base plate was impacted in place. Next, the Jatin size 4 press-fit CR femur impacted into place and the Woodford size 4, 9 mm CS polyethylene insert was placed. The patient's knee was brought into full extension. The patella was then press-fit in place at this time. Tourniquet was deflated. One liter dilute Betadine solution was irrigated through the knee along with 3 L of pulse lavage irrigation with Ancef. Periarticular injection was then completed. The patient's knee was brought through a range of motion. Once the cement had time to set up and it was found to be stable to varus valgus stress, the patella was tracking centrally with full range of motion. At this time, a #2 barbed suture was used for closure of the medial parapatellar arthrotomy. Topical tranexamic acid was placed. 2-0 Vicryl was used subcutaneously, Prineo was used for the skin. The patient tolerated the procedure well and was sent to the PACU in stable condition. MMODAL /[id number]
== END 2019-10-26 11:50 | disposition home or self-care (01) ==
LOC: JD.SDS 10:28 → JD.MS 10:29 → JD.OB 12:15 → JD.SDS 10-26 11:50
PROVIDERS: ATTEND Orthopaedic Surgery
DX: M17.11 Unilateral primary osteoarthritis, right knee (principal); G89.29 Other chronic pain; E78.00 Pure hypercholesterolemia, unspecified; I10 Essential (primary) hypertension; J45.909 Unspecified asthma, uncomplicated; E78.5 Hyperlipidemia, unspecified; E11.9 Type 2 diabetes mellitus without complications; Z11.59 Encounter for screening for other viral diseases; Z88.8 Allergy status to other drugs, medicaments and biological substances; Z79.899 Other long term (current) drug therapy; Z79.82 Long term (current) use of aspirin; Z79.84 Long term (current) use of oral hypoglycemic drugs; Z91.018 Allergy to other foods; Z96.652 Presence of left artificial knee joint
CPT/HCPCS: 27447; 36415; 73560; 80053; 81025; 82962; 85027; 87635; 87641; 97110; 97116; 97161; 97165; A9270; J0171; J0690; J0697; J1100; J1885; J2001; J2250; J2270; J2405; J2704; J2795; J3370; J3490; J7060; J7120; 01402; 64450; C1776; U0002